=== PATIENT | male | born 1985 | race Caucasian/White ===

== ENCOUNTER 2020-05-16 13:04 | Emergency (ER) | payer SELFPAY ==
[~2020-05-16] VITALS: Ht 188 cm; Wt 89.1 kg
[2020-05-16] MEDS ORDERED: methylPREDNISolone SOD SUCC 125 MG/2 ML IVPush ONE (13:35)
[2020-05-16] MEDS ORDERED: methylPREDNISolone SOD SUCC 125 MG/2 ML ONE (13:52)
[2020-05-16 13:59] LABS: BASOPHILS % (AUTO) 0 % (0-1); EOSINOPHILS % (AUTO) 0 % (1-7); LYMPHOCYTES % (AUTO) 4 % (22-44); MEAN CORPUSCULAR HEMOGLOBIN 30.5 pg (27.5-34.5); MEAN CORPUSCULAR HGB CONC 34.7 g/dL (33.2-36.2); MEAN PLATELET VOLUME 8.5 fL (7.4-10.4); MONOCYTES % (AUTO) 2 % (2-9); NEUTROPHILS % (AUTO) 94 % (42-75); PLATELET COUNT 296 x10^3/uL (130-400); RED BLOOD COUNT 5.03 x10^6/uL (4.38-5.82); RED CELL DISTRIBUTION WIDTH 12.6 % (9.4-14.8)
[2020-05-16] MEDS ORDERED: SODIUM CHLORIDE FLUSH 10ML SYR IVF ONE (14:00)
[2020-05-16] MEDS ORDERED: SODIUM CHLORIDE 0.9% 1,000ML IVBOLUS ONE (14:00)
[2020-05-16] MEDS ORDERED: ALBU18HF INH (14:03)
[2020-05-16 14:09] LABS: ALBUMIN 3.8 g/dL (3.4-5.0); ANION GAP 10 mmol/L (5-15); CALCIUM 9.5 mg/dL (8.5-10.1); CHLORIDE 105 mmol/L (98-107); CREATININE 0.95 mg/dL (0.7-1.3)
--- NOTE | 2020-05-16 14:18 | NUR ---
HEART RATE DOWN TO 118BPM AFTER FIRST LITER OF NS. DR. ALONZO NOTIFIED AND ORDERED A SECOND LITER.
--- NOTE | 2020-05-16 14:21 | NUR ---
PT TO CT.
[2020-05-16] MEDS ORDERED: SODIUM CHLORIDE 0.9% 1,000 ML IV ONE (14:23)
[2020-05-16 14:26] LABS: MD NO
[2020-05-16] MEDS ORDERED: OMNIPAQUE 350 MG/ML, 100ML BOTTLE ONE (14:34)
--- NOTE | 2020-05-16 14:46 | NUR ---
REPORT FROM ROSELIA [place]. [facility] SPEECH MUFFLED. AIRWAY PATENT AND MANAGING SECRETIONS. FAMILY AT BEDSIDE. BP/SPO2/ECG MONITORING IN PLACE. +TACHYCARDIA. FAMILY/PT UPDATED TO POC AND DEMONSTRATE UNDERSTANDING.
--- NOTE | 2020-05-16 15:07 | NUR ---
REPOR TO ROSELIA MAE
--- NOTE | 2020-05-16 15:17 | NUR ---
pt in bed with no signs or symptoms of acute distress noted respirations even and unlabored, dnies pain or discomfort. pt states that he wants to go. dr dominguez, states he will speak with pt shortly. pt on coding team lead , with bed rails up bilaterally, call light within reach and family member at bedside.
[2020-05-16 15:18] VITALS: BP 120/69
--- NOTE | 2020-05-16 15:38 | NUR ---
in room to assess, before md could print dc papers pt self dc'd iv and walked out of unit. this rn found pt in parking lot and confirmed removal of iv, pt states "ill come back as soon as i handle this emergency at my house". this rn informed him that we dont need him to come back we just needed to confirm the removal of the iv. pt with all belongings, walked with steady gait and good balance, respirations even and unlabored no signs or symptoms of acute distress noted.
== END 2020-05-16 15:42 | disposition left against medical advice (07) ==
LOC: MERGE 15:00 → ED 15:00
DX: T78.3XXA Angioneurotic edema, initial encounter (principal); F15.10 Other stimulant abuse, uncomplicated
CPT/HCPCS: 36415; 70491; 80048; 82040; 85025; 93005; 96361; 96374; 99285; J2930; J7030; Q9967

== ENCOUNTER 2020-05-17 23:53 | Inpatient (IN) | payer MEDICAID ==
[~2020-05-17] VITALS: Ht 188 cm; Wt 84.2 kg
[~2020-05-17 23:53] MED LIST: ALBU18HF INH
--- NOTE | 2020-05-18 00:23 | NUR ---
PT REFUSING LAB UNTIL MOM BROUGHT BACK FROM LOBBY, MOM NOW AT BEDSIDE.
--- NOTE | 2020-05-18 00:46 | NUR ---
PT REFUSING BLOOD DRAW X2
[2020-05-18] MEDS ORDERED: HALOPERIDOL 5 MG/ML ONE (00:59)
[2020-05-18] MEDS ORDERED: HALOPERIDOL 5 MG/ML IM ONE (01:00)
--- NOTE | 2020-05-18 01:11 | NUR ---
PT REQ TO BE SEDATED AND HAVE MOUTH WASHED AND SUCTIONED, SUCTIONING NOT INDICATED AT THIS TIME. MOM REMAINS AT BEDSIDE PT MANAGING SECRETIONS NO DIFFICULTY, MOUTH SWABS PROVIDED.
[2020-05-18 01:30] LABS: BASOPHILS % (AUTO) 1 % (0-1); EOSINOPHILS % (AUTO) 1 % (1-7); LYMPHOCYTES % (AUTO) 16 % (22-44); MEAN CORPUSCULAR HEMOGLOBIN 30.2 pg (27.5-34.5); MEAN CORPUSCULAR HGB CONC 34.2 g/dL (33.2-36.2); MEAN PLATELET VOLUME 8.6 fL (7.4-10.4); MONOCYTES % (AUTO) 9 % (2-9); NEUTROPHILS % (AUTO) 74 % (42-75); PLATELET COUNT 234 x10^3/uL (130-400); RED BLOOD COUNT 4.93 x10^6/uL (4.38-5.82); RED CELL DISTRIBUTION WIDTH 12.7 % (9.4-14.8)
[2020-05-18 01:36] LABS: ALANINE AMINOTRANSFERASE 31 U/L (12-78); ALBUMIN 3.6 g/dL (3.4-5.0); ANION GAP 6 mmol/L (5-15); CALCIUM 8.7 mg/dL (8.5-10.1); CHLORIDE 107 mmol/L (98-107)
[2020-05-18 01:37] LABS: MD NO
[2020-05-18 01:38] LABS: ALKALINE PHOSPHATASE 97 U/L (45-117); BILIRUBIN,TOTAL 1.1 mg/dL (0.2-1.0); TOTAL PROTEIN 7.6 g/dL (6.4-8.2)
[2020-05-18 01:39] LABS: SALICYLATE LEVEL < 1.7 mg/dL (2.8-20.0)
--- NOTE | 2020-05-18 01:45 | NUR ---
PT AND MOTHER TALKING IN ROOM PT REQ WARM BLANKET AND DENIES ALL DRUG USE AT THIS TIME. STS HE FEEL LIKE HIS TONGUE IS SWOLLEN, PT MANAGING ALL SECTRETIONS AT THIS TIME.
[2020-05-18] MEDS ORDERED: PROPOFOL 10 MG/ML, 100ML IV ONE (02:00)
[2020-05-18] MEDS ORDERED: ETOMIDATE 20 MG/10 ML ONE (02:00)
[2020-05-18] MEDS ORDERED: SUCCINYLCHOLINE 20 MG/ML, 10ML ONE (02:00)
--- NOTE | 2020-05-18 02:30 | NUR ---
PT MOTHER REQ RN AT THIS TIME STS PT NEEDS IV, THAT HE NEEDS FLUIDS AND HE IS DEHYDRATED PT MOTHER ANGRY WITH RN ABOUT LACK OF IV AT THIS TIME. PT DROWSY BUT ANSWERING QUESTIONS AT THIS TIME. STS MOUTH IS DRY MORE SWABS PROVIDED AT THIS TIME.
--- NOTE | 2020-05-18 03:36 | NUR ---
PT RESTING ON [place] AT THIS TIME MOM AT BEDSIDE AGAIN REQ IV AND NOW WANTS TO SPEAK WITH . MD TO BEDSIDE PT ANSWERING QUESTIONS WITH MD AT THIS TIME, STS HE USES HEROIN AND METH. MOM CONTINUES TO DENY DRUG USE, VERY ANGRY WITH MD SHOUTING AND CURSING AT MD.
--- NOTE | 2020-05-18 03:45 | NUR ---
UNK MALE VISITOR AT BEDSIDE WITH MOM AT THIS TIME SHOUTING AT RN ABOUT PT NEEDING AN IV AND FLUIDS.
--- NOTE | 2020-05-18 03:50 | NUR ---
UNK MALE NO LONGER AT BEDSIDE PT GF NOW AT BEDSIDE.
[2020-05-18] MEDS ORDERED: NALOXONE 0.4 MG/ML, 1ML ONE (03:55)
--- NOTE | 2020-05-18 03:55 | NUR ---
NEW WHEAL NOTED TO L PALM, COOL TO TOUCH. PT BECOMING MORE ALTERED AT THIS TIME PER GF.
[2020-05-18] MEDS ORDERED: NALOXONE 1 MG/ML, 2ML ONE (03:58)
--- NOTE | 2020-05-18 04:00 | NUR ---
LATE ENTRY: MONITOR CHECK CALLED PT O2 SAT IN 60'S, PT BAGGED O2 SAT UP TO 99% DR ABERNATHY AT BEDSIDE. PT GIVEN 1MG OF NARCAN IM DUE TO INABILITY TO OBTAIN ACCESS. PIV ACCESS OBTAINED PT GIVEN ADDITIONAL 0.4 OF NARCAN IV, PT BREATHING INDEPENDENTLY BUT IS NOT ALERT AT THIS TIME. PER DR ABERNATHY PT TO BE MOVED TO T2 AND INTUBATED AT THIS TIME.
--- NOTE | 2020-05-18 04:46 | NUR ---
7.5 25 AT THE LIP 18 100% PEEP 5, 500 Addendum: 05/18/20 at 0521 by [email or web address] BREATH SOUNDS HEARD THROUGHOUT, EQUAL CHEST RISE AND FALL NOTED.
--- NOTE | 2020-05-18 04:46 | NUR ---
OBREGON INSERTED URINE SENT TO LAB
--- NOTE | 2020-05-18 05:01 | NUR ---
18FR OG TUBE PLACED
--- NOTE | 2020-05-18 05:11 | NUR ---
PT PLACED ON BEAR HUGGER, WARMING MEASURES IN PLACE.
--- NOTE | 2020-05-18 05:12 | NUR ---
LAB AT BEDSIDE FOR DRAW
--- NOTE | 2020-05-18 05:26 | NUR ---
LAB REMAINS AT BEDSIDE FOR DRAW
[2020-05-18 05:37] LABS: MICROSCOPIC NOT IND
[2020-05-18] MEDS ORDERED: MIDAZOLAM 1 MG/ML, 2ML ONE (05:51)
[2020-05-18 05:54] LABS: AMPHETAMINE SCREEN, URINE Positive (Negative); BARBITURATE SCREEN, URINE Negative (Negative); BENZODIAZEPINE SCREEN, URINE Negative (Negative); CANNABINOID SCREEN, URINE Negative (Negative); COCAINE SCREEN, URINE Negative (Negative); METHADONE SCREEN, URINE Negative (Negative); OPIATE SCREEN, URINE Positive (Negative)
--- NOTE | 2020-05-18 05:56 | NUR ---
PT TEARING, ERP UPDATED ORDER FOR VERSED PUSH, PT MEDICATED PER MAR AT THIS TIME.
[2020-05-18] MEDS ORDERED: MIDAZOLAM 1 MG/ML, 5ML IVPush ONE (06:00)
[2020-05-18] MEDS ORDERED: NALOXONE 0.4 MG/ML, 1ML IVPush ONE (06:00)
[2020-05-18] MEDS ORDERED: NALOXONE 1 MG/ML, 2ML IM ONE (06:00)
--- NOTE | 2020-05-18 06:05 | NUR ---
PT NO LONGER TEARING AT THIS TIME AFTER MEDICATION.
[2020-05-18] MEDS ORDERED: ETOMIDATE 20 MG/10 ML IVPush ONE (06:30)
[2020-05-18] MEDS ORDERED: PROPOFOL 100 ML IV PRN (06:30)
[2020-05-18] MEDS ORDERED: SODIUM CHLORIDE 0.9% 1,000 ML IV ONE (06:30)
[2020-05-18] MEDS ORDERED: SUCCINYLCHOLINE 20 MG/ML, 10ML IVPush ONE (06:30)
--- NOTE | 2020-05-18 06:31 | NUR ---
RESPIRTATORY AT BEDSIDE
--- NOTE | 2020-05-18 06:32 | NUR ---
REPORT TO DARCIE RN PT READY FOR TRANSPORT TO CT AND ROOM 548
[2020-05-18 06:35] LABS: TROPONIN I < 0.015 ng/mL (0.000-0.045)
[2020-05-18] MEDS ORDERED: ONDANSETRON 2MG/ML, 2ML IVPush PRN (08:00)
[2020-05-18] MEDS: ENOXAPARIN 40 MG/0.4 ML SQ SCH (08:51)
[2020-05-18] MEDS: LACTATED RINGERS 1,000 ML IV SCH ×2 (08:51→16:50)
[2020-05-18] MEDS: SENNA/DOCUSATE TABLET PO SCH (08:51)
[2020-05-18] MEDS: DEXAMETHASONE 4 MG/ML, 1ML IVPush SCH ×3 (08:51→20:20)
[2020-05-18] MEDS: FAMOTIDINE 20 MG/2 ML IVPush SCH ×2 (08:51→20:20)
[2020-05-18] MEDS ORDERED: PROPOFOL 100 ML IV ONE (13:01)
[2020-05-18] MEDS: PROPOFOL 100 ML IV PRN ×4 (13:05→23:55)
[2020-05-18 21:27] VITALS: BP 122/88
[2020-05-18] MEDS: POLYETHYLENE GLYCOL 17 GM PACKET PO PRN (22:23)
[2020-05-18] MEDS: BISACODYL 10 MG SUPP PR PRN (22:45)
[2020-05-19] MEDS: LACTATED RINGERS 1,000 ML IV SCH (01:09)
[2020-05-19] MEDS: DEXAMETHASONE 4 MG/ML, 1ML IVPush SCH (01:58)
[2020-05-19] MEDS: PROPOFOL 100 ML IV PRN ×2 (03:15→05:44)
[2020-05-19 04:00] VITALS: BP 122/89
[2020-05-19 04:37] LABS: BASOPHILS % (AUTO) 0 % (0-1); EOSINOPHILS % (AUTO) 0 % (1-7); LYMPHOCYTES % (AUTO) 4 % (22-44); MEAN CORPUSCULAR HEMOGLOBIN 30.5 pg (27.5-34.5); MEAN CORPUSCULAR HGB CONC 34.2 g/dL (33.2-36.2); MEAN PLATELET VOLUME 8.8 fL (7.4-10.4); MONOCYTES % (AUTO) 4 % (2-9); NEUTROPHILS % (AUTO) 92 % (42-75); PLATELET COUNT 271 x10^3/uL (130-400); RED BLOOD COUNT 5.13 x10^6/uL (4.38-5.82); RED CELL DISTRIBUTION WIDTH 12.8 % (9.4-14.8)
[2020-05-19 04:41] LABS: MD NO
[2020-05-19 04:49] LABS: ALANINE AMINOTRANSFERASE 29 U/L (12-78); ALBUMIN 3.5 g/dL (3.4-5.0); ANION GAP 10 mmol/L (5-15); CALCIUM 8.8 mg/dL (8.5-10.1); CHLORIDE 107 mmol/L (98-107)
[2020-05-19 04:51] LABS: ALKALINE PHOSPHATASE 104 U/L (45-117); BILIRUBIN,TOTAL 1.5 mg/dL (0.2-1.0); CREATININE 0.64 mg/dL (0.7-1.3); TOTAL PROTEIN 7.9 g/dL (6.4-8.2)
[2020-05-19] MEDS: FAMOTIDINE 20 MG/2 ML IVPush SCH (07:49)
[2020-05-19] MEDS: SENNA/DOCUSATE TABLET PO SCH (07:49)
[2020-05-19] MEDS: OXYcodone IR 5MG TABLET PO PRN ×2 (07:50→13:48)
[2020-05-19] MEDS: ENOXAPARIN 40 MG/0.4 ML SQ SCH ×2 (07:51→17:00)
[2020-05-19] MEDS: DEXMEDETOMIDINE 400 MCG in SODIUM CHLORIDE 0.9% 96 ML IV PRN ×3 (08:22→18:49)
[2020-05-19] MEDS: AMPICILLIN/SULBACTAM 3 GM in SODIUM CHLORIDE 0.9% 100 ML IV SCH ×3 (08:22→20:15)
[2020-05-19] MEDS ORDERED: OMNIPAQUE 350 MG/ML, 75ML BOTTLE ONE (11:01)
[2020-05-19] MEDS: SODIUM CHLORIDE INHALATION 7%, 4 ML NPPB SCH (13:06)
[2020-05-19] MEDS: ENALAPRILAT 1.25 MG/ML, 2ML IVPush PRN (13:48)
[2020-05-19] MEDS: PANTOPRAZOLE 40 MG IV IVPush SCH (17:05)
[2020-05-19] MEDS: LORazepam 2 MG/ML, 1ML IVPush PRN (21:03)
[2020-05-19] MEDS ORDERED: LACTATED RINGERS 1,000 ML IV SCH (22:00)
[2020-05-19] MEDS ORDERED: LACTATED RINGERS 1,000 ML IVBOLUS ONE (22:00)
[2020-05-20] MEDS: DEXMEDETOMIDINE 400 MCG in SODIUM CHLORIDE 0.9% 96 ML IV PRN ×4 (00:55→20:55)
[2020-05-20] MEDS: SODIUM CHLORIDE INHALATION 7%, 4 ML NPPB SCH ×2 (01:00→14:39)
[2020-05-20] MEDS: LORazepam 2 MG/ML, 1ML IVPush PRN ×2 (01:20→15:59)
[2020-05-20] MEDS: AMPICILLIN/SULBACTAM 3 GM in SODIUM CHLORIDE 0.9% 100 ML IV SCH ×4 (02:02→19:55)
[2020-05-20 04:00] VITALS: BP 122/76
[2020-05-20 04:23] LABS: BASOPHILS % (AUTO) 0 % (0-1); EOSINOPHILS % (AUTO) 0 % (1-7); LYMPHOCYTES % (AUTO) 3 % (22-44); MEAN CORPUSCULAR HEMOGLOBIN 30.6 pg (27.5-34.5); MEAN CORPUSCULAR HGB CONC 34.2 g/dL (33.2-36.2); MEAN PLATELET VOLUME 8.9 fL (7.4-10.4); MONOCYTES % (AUTO) 7 % (2-9); NEUTROPHILS % (AUTO) 90 % (42-75); PLATELET COUNT 255 x10^3/uL (130-400); RED BLOOD COUNT 5.23 x10^6/uL (4.38-5.82)
[2020-05-20 04:29] LABS: ANION GAP 4 mmol/L (5-15); CALCIUM 8.7 mg/dL (8.5-10.1); CHLORIDE 109 mmol/L (98-107); CREATININE 0.66 mg/dL (0.7-1.3)
[2020-05-20] MEDS: PANTOPRAZOLE 40 MG IV IVPush SCH ×2 (04:47→17:48)
[2020-05-20 05:43] LABS: MD SCAN
[2020-05-20] MEDS: ENALAPRILAT 1.25 MG/ML, 2ML IVPush PRN (08:15)
[2020-05-20] MEDS: SENNA/DOCUSATE TABLET PO SCH (08:33)
[2020-05-20] MEDS: ACETAMINOPHEN 325 MG TABLET PO PRN (08:40)
[2020-05-20] MEDS ORDERED: GADOTERATE 10 MMOL/20ML SYR ONE (18:30)
[2020-05-21] MEDS: DEXMEDETOMIDINE 1,000 MCG in SODIUM CHLORIDE 0.9% 240 ML IV PRN ×2 (00:47→16:29)
[2020-05-21] MEDS: SODIUM CHLORIDE INHALATION 7%, 4 ML NPPB SCH ×2 (01:00→07:00)
[2020-05-21] MEDS ORDERED: DEXMEDETOMIDINE 1,000 MCG in SODIUM CHLORIDE 0.9% 240 ML IV PRN (01:00)
[2020-05-21] MEDS: AMPICILLIN/SULBACTAM 3 GM in SODIUM CHLORIDE 0.9% 100 ML IV SCH (01:52)
[2020-05-21] MEDS: LORazepam 2 MG/ML, 1ML IVPush PRN ×2 (02:55→06:04)
[2020-05-21 04:01] VITALS: BP 118/72
[2020-05-21 04:23] LABS: MEAN CORPUSCULAR HEMOGLOBIN 30.3 pg (27.5-34.5); MEAN CORPUSCULAR HGB CONC 33.7 g/dL (33.2-36.2); PLATELET COUNT 220 x10^3/uL (130-400); RED BLOOD COUNT 4.95 x10^6/uL (4.38-5.82); RED CELL DISTRIBUTION WIDTH 12.9 % (9.4-14.8)
[2020-05-21 04:32] LABS: ANION GAP 4 mmol/L (5-15); CALCIUM 8.8 mg/dL (8.5-10.1); CHLORIDE 109 mmol/L (98-107)
[2020-05-21] MEDS: PANTOPRAZOLE 40 MG IV IVPush SCH ×2 (04:32→16:29)
[2020-05-21 04:38] LABS: ALANINE AMINOTRANSFERASE 22 U/L (12-78); ALBUMIN 2.9 g/dL (3.4-5.0); ALKALINE PHOSPHATASE 96 U/L (45-117); BILIRUBIN,TOTAL 1.2 mg/dL (0.2-1.0); TOTAL PROTEIN 7.2 g/dL (6.4-8.2)
[2020-05-21 05:21] LABS: MD YES
[2020-05-21 05:24] LABS: BANDS%(MANUAL) 3 % (0-7); LYMPH#(MANUAL) 1.06 x10^3/uL (1-3.4); LYMPHS% (MANUAL) 4 % (22-44); MONOS#(MANUAL) 2.66 x10^3/uL (0.3-2.7); MONOS% (MANUAL) 10 % (2-9); SEG#(MANUAL) 22.08 x10^3/uL (1.8-6.8); SEGS% (MANUAL) 83 % (42-75)
[2020-05-21 05:25] LABS: <PLATELET ESTIMATE> ADEQUATE; <PLT MORPHOLOGY> NORMAL PLT MORPH; <RBC MORPHOLOGY> NORMAL; PMNS WITH VACUOLES 1+; TOXIC GRAN 1+
[2020-05-21] MEDS ORDERED: ACYCLOVIR 800 MG in SODIUM CHLORIDE 0.9% 250 ML IV SCH (06:30)
[2020-05-21] MEDS ORDERED: VANCOMYCIN PER PHARMACY MC PRN (06:30)
[2020-05-21] MEDS ORDERED: VANCOMYCIN 2,200 MG in SODIUM CHLORIDE 0.9% 500 ML IV ONE (07:00)
[2020-05-21] MEDS ORDERED: PHARMACOKINETIC MONITORING MC PRN (07:00)
[2020-05-21] MEDS ORDERED: PHARMACOKINETIC CONSULTATION MC ONE (07:00)
[2020-05-21] MEDS: PIPERACILLIN/TAZO/PMX 3.375GM 50 ML IV SCH ×3 (07:40→20:01)
[2020-05-21] MEDS: SENNA/DOCUSATE TABLET PO SCH (08:31)
[2020-05-21] MEDS ORDERED: OMNIPAQUE 350 MG/ML, 150 ML BOTTLE ONE (10:45)
[2020-05-21 11:41] LABS: GLUCOSE, CSF 78 mg/dL (40-80); TOTAL PROTEIN,CSF 37 mg/dL (15-45)
[2020-05-21] MEDS ORDERED: VANCOMYCIN 1,800 MG in SODIUM CHLORIDE 0.9% 250 ML IV SCH (20:30)
[2020-05-21] MEDS: BISACODYL 10 MG SUPP PR PRN (21:38)
[2020-05-21] MEDS ORDERED: [UNRECOGNIZED DRUG - OTHER] IV ONE (22:00)
[2020-05-21] MEDS ORDERED: SODIUM CHLORIDE IV ONE (22:00)
[2020-05-22] MEDS: SODIUM CHLORIDE INHALATION 7%, 4 ML NPPB SCH ×2 (01:00→13:00)
[2020-05-22] MEDS: PIPERACILLIN/TAZO/PMX 3.375GM 50 ML IV SCH ×4 (02:13→21:42)
[2020-05-22 04:00] VITALS: BP 132/94
[2020-05-22 04:47] LABS: HCT (SEDRATE) 40.3 % (39.2-51.8)
[2020-05-22] MEDS: PANTOPRAZOLE 40 MG IV IVPush SCH ×2 (04:55→17:38)
[2020-05-22] MEDS: LORazepam 2 MG/ML, 1ML IVPush PRN (05:24)
[2020-05-22 05:34] LABS: BASOPHILS % (AUTO) 0 % (0-1); EOSINOPHILS % (AUTO) 0 % (1-7); LYMPHOCYTES % (AUTO) 5 % (22-44); MEAN CORPUSCULAR HEMOGLOBIN 30.1 pg (27.5-34.5); MEAN CORPUSCULAR HGB CONC 33.7 g/dL (33.2-36.2); MEAN PLATELET VOLUME 9.6 fL (7.4-10.4); MONOCYTES % (AUTO) 9 % (2-9); NEUTROPHILS % (AUTO) 87 % (42-75); PLATELET COUNT 216 x10^3/uL (130-400); RED BLOOD COUNT 4.53 x10^6/uL (4.38-5.82); RED CELL DISTRIBUTION WIDTH 12.7 % (9.4-14.8)
[2020-05-22 05:37] LABS: ALBUMIN 2.7 g/dL (3.4-5.0); ANION GAP 5 mmol/L (5-15); CALCIUM 8.4 mg/dL (8.5-10.1); CHLORIDE 109 mmol/L (98-107)
[2020-05-22 05:40] LABS: ALANINE AMINOTRANSFERASE 19 U/L (12-78); ALKALINE PHOSPHATASE 92 U/L (45-117); BILIRUBIN,TOTAL 1.1 mg/dL (0.2-1.0); CREATININE 0.58 mg/dL (0.7-1.3); TOTAL PROTEIN 6.7 g/dL (6.4-8.2)
[2020-05-22 05:58] LABS: MD SCAN
[2020-05-22] MEDS: DEXMEDETOMIDINE 1,000 MCG in SODIUM CHLORIDE 0.9% 240 ML IV PRN ×2 (06:46→19:18)
[2020-05-22] MEDS: POTASSIUM CHLORIDE 10% 40 MEQ/30 ML UDC PO SCH ×2 (09:33→21:07)
[2020-05-22] MEDS: SENNA/DOCUSATE TABLET PO SCH (09:33)
[2020-05-22] MEDS ORDERED: VANCOMYCIN 1,800 MG in SODIUM CHLORIDE 0.9% 250 ML IV SCH (12:30)
[2020-05-22] MEDS: OXYcodone IR 5MG TABLET PO PRN (12:48)
[2020-05-22] MEDS ORDERED: FENTANYL PF 100 MCG/2ML ONE (13:49)
[2020-05-22] MEDS ORDERED: PHENYLEPHRINE 10 MG/ML ONE (14:17)
[2020-05-22] MEDS ORDERED: EPINEPHRINE 1 MG/ML, 1ML ONE (15:01)
[2020-05-22] MEDS ORDERED: BUPIVACAINE/PF 0.5% ONE (15:01)
[2020-05-23] MEDS: SODIUM CHLORIDE INHALATION 7%, 4 ML NPPB SCH (01:00)
[2020-05-23] MEDS: morphine SULFATE 10 MG/ML, 1ML IVPush PRN (01:27)
[2020-05-23] MEDS: OXYcodone IR 5MG TABLET PO PRN (03:57)
[2020-05-23] MEDS: PIPERACILLIN/TAZO/PMX 3.375GM 50 ML IV SCH ×4 (03:57→21:44)
[2020-05-23 04:05] VITALS: BP 127/83
[2020-05-23 04:24] LABS: BASOPHILS % (AUTO) 0 % (0-1); EOSINOPHILS % (AUTO) 1 % (1-7); LYMPHOCYTES % (AUTO) 9 % (22-44); MEAN CORPUSCULAR HEMOGLOBIN 30.1 pg (27.5-34.5); MEAN CORPUSCULAR HGB CONC 33.8 g/dL (33.2-36.2); MEAN PLATELET VOLUME 9.3 fL (7.4-10.4); MONOCYTES % (AUTO) 11 % (2-9); NEUTROPHILS % (AUTO) 79 % (42-75); PLATELET COUNT 185 x10^3/uL (130-400); RED BLOOD COUNT 4.43 x10^6/uL (4.38-5.82); RED CELL DISTRIBUTION WIDTH 12.7 % (9.4-14.8)
[2020-05-23 04:39] LABS: ANION GAP 4 mmol/L (5-15); CALCIUM 8.1 mg/dL (8.5-10.1); CHLORIDE 113 mmol/L (98-107); CREATININE 0.55 mg/dL (0.7-1.3)
[2020-05-23 04:59] LABS: MD SCAN
[2020-05-23] MEDS: PANTOPRAZOLE 40 MG IV IVPush SCH ×2 (05:11→17:30)
[2020-05-23] MEDS: DEXMEDETOMIDINE 1,000 MCG in SODIUM CHLORIDE 0.9% 240 ML IV PRN (06:31)
[2020-05-23] MEDS: SENNA/DOCUSATE TABLET PO SCH (08:44)
[2020-05-23] MEDS ORDERED: PROPOFOL 100 ML IV ONE (10:50)
[2020-05-23] MEDS ORDERED: PROPOFOL 100 ML IV PRN (11:00)
[2020-05-23] MEDS ORDERED: FENTANYL PF 1,000 MCG in SODIUM CHLORIDE 0.9% 80 ML IV PRN (16:30)
[2020-05-23] MEDS: PROPOFOL 100 ML IV PRN ×2 (17:30→21:44)
[2020-05-23] MEDS: FENTANYL PF 2,500 MCG in SODIUM CHLORIDE 0.9% 200 ML IV PRN (21:55)
[2020-05-24] MEDS: PROPOFOL 100 ML IV PRN ×2 (00:15→04:15)
[2020-05-24] MEDS: PANTOPRAZOLE 40 MG IV IVPush SCH ×2 (04:15→16:42)
[2020-05-24] MEDS: PIPERACILLIN/TAZO/PMX 3.375GM 50 ML IV SCH ×4 (04:18→21:38)
[2020-05-24 07:16] LABS: BASOPHILS % (AUTO) 1 % (0-1); EOSINOPHILS % (AUTO) 2 % (1-7); LYMPHOCYTES % (AUTO) 14 % (22-44); MEAN CORPUSCULAR HEMOGLOBIN 30.6 pg (27.5-34.5); MEAN CORPUSCULAR HGB CONC 33.7 g/dL (33.2-36.2); MEAN PLATELET VOLUME 9.7 fL (7.4-10.4); MONOCYTES % (AUTO) 8 % (2-9); NEUTROPHILS % (AUTO) 76 % (42-75); PLATELET COUNT 143 x10^3/uL (130-400); RED BLOOD COUNT 4.43 x10^6/uL (4.38-5.82); RED CELL DISTRIBUTION WIDTH 12.4 % (9.4-14.8)
[2020-05-24 07:17] LABS: MD NO
[2020-05-24 07:53] LABS: ALANINE AMINOTRANSFERASE 30 U/L (12-78); ALBUMIN 2.4 g/dL (3.4-5.0); ANION GAP 5 mmol/L (5-15); CALCIUM 7.9 mg/dL (8.5-10.1); CHLORIDE 110 mmol/L (98-107); CREATININE 0.56 mg/dL (0.7-1.3)
[2020-05-24 07:55] LABS: ALKALINE PHOSPHATASE 76 U/L (45-117); BILIRUBIN,TOTAL 1.1 mg/dL (0.2-1.0); TOTAL PROTEIN 6.1 g/dL (6.4-8.2)
[2020-05-24] MEDS: SENNA/DOCUSATE TABLET PO SCH (10:21)
[2020-05-24] MEDS: POTASSIUM CHLORIDE 20 MEQ PACKET PO SCH ×2 (10:22→20:44)
[2020-05-24] MEDS: FENTANYL PF 2,500 MCG in SODIUM CHLORIDE 0.9% 200 ML IV PRN ×2 (12:35→23:42)
[2020-05-24] MEDS: LORazepam 2 MG/ML, 1ML IVPush PRN (21:36)
[2020-05-25] MEDS: LORazepam 2 MG/ML, 1ML IVPush PRN ×2 (02:58→04:47)
[2020-05-25] MEDS: PIPERACILLIN/TAZO/PMX 3.375GM 50 ML IV SCH ×4 (04:01→21:47)
[2020-05-25] MEDS: PANTOPRAZOLE 40 MG IV IVPush SCH ×2 (05:04→17:38)
[2020-05-25 05:06] LABS: BASOPHILS % (AUTO) 0 % (0-1); EOSINOPHILS % (AUTO) 1 % (1-7); LYMPHOCYTES % (AUTO) 10 % (22-44); MEAN CORPUSCULAR HEMOGLOBIN 30.5 pg (27.5-34.5); MEAN CORPUSCULAR HGB CONC 34.2 g/dL (33.2-36.2); MEAN PLATELET VOLUME 9.1 fL (7.4-10.4); MONOCYTES % (AUTO) 9 % (2-9); NEUTROPHILS % (AUTO) 79 % (42-75); PLATELET COUNT 220 x10^3/uL (130-400); RED BLOOD COUNT 4.96 x10^6/uL (4.38-5.82); RED CELL DISTRIBUTION WIDTH 12.8 % (9.4-14.8)
[2020-05-25 05:11] LABS: ANION GAP 5 mmol/L (5-15); CALCIUM 8.6 mg/dL (8.5-10.1); CHLORIDE 106 mmol/L (98-107)
[2020-05-25 05:46] LABS: MD SCAN
[2020-05-25] MEDS ORDERED: METHYLNALTREXONE 12 MG/0.6 ML SYR SQ SCH (09:00)
[2020-05-25] MEDS: SENNA/DOCUSATE TABLET PO SCH (09:18)
[2020-05-25] MEDS ORDERED: MIDAZOLAM 1 MG/ML, 5ML ONE (16:10)
[2020-05-25] MEDS ORDERED: VECURONIUM 10 MG ONE (16:10)
[2020-05-25] MEDS ORDERED: FENTANYL PF 100 MCG/2ML ONE ×3 (16:11)
[2020-05-25] MEDS: morphine SULFATE 10 MG/ML, 1ML IVPush PRN (23:20)
[2020-05-26] MEDS: LORazepam 2 MG/ML, 1ML IVPush PRN ×4 (00:01→23:10)
[2020-05-26] MEDS: FENTANYL PF 2,500 MCG in SODIUM CHLORIDE 0.9% 200 ML IV PRN ×2 (00:24→11:29)
[2020-05-26] MEDS: PIPERACILLIN/TAZO/PMX 3.375GM 50 ML IV SCH ×4 (03:43→21:58)
[2020-05-26 04:29] LABS: BASOPHILS % (AUTO) 1 % (0-1); EOSINOPHILS % (AUTO) 1 % (1-7); LYMPHOCYTES % (AUTO) 10 % (22-44); MEAN CORPUSCULAR HEMOGLOBIN 30.7 pg (27.5-34.5); MEAN CORPUSCULAR HGB CONC 34.4 g/dL (33.2-36.2); MEAN PLATELET VOLUME 9.1 fL (7.4-10.4); MONOCYTES % (AUTO) 7 % (2-9); NEUTROPHILS % (AUTO) 81 % (42-75); PLATELET COUNT 246 x10^3/uL (130-400); RED BLOOD COUNT 5.29 x10^6/uL (4.38-5.82); RED CELL DISTRIBUTION WIDTH 12.6 % (9.4-14.8)
[2020-05-26 04:37] LABS: ANION GAP 7 mmol/L (5-15); CALCIUM 9.1 mg/dL (8.5-10.1); CHLORIDE 103 mmol/L (98-107); CREATININE 0.57 mg/dL (0.7-1.3)
[2020-05-26] MEDS: PANTOPRAZOLE 40 MG IV IVPush SCH ×2 (05:00→16:03)
[2020-05-26 05:45] LABS: MD SCAN
[2020-05-26] MEDS: SENNA/DOCUSATE TABLET PO SCH (07:46)
[2020-05-26] MEDS ORDERED: MIDAZOLAM 1 MG/ML, 5ML ONE ×2 (09:28→13:21)
[2020-05-26] MEDS: METHYLNALTREXONE 12 MG/0.6 ML SYR SQ SCH (09:33)
[2020-05-26] MEDS ORDERED: MIDAZOLAM 1 MG/ML, 5ML IVPush ONE (13:30)
[2020-05-26] MEDS: morphine SULFATE 10 MG/ML, 1ML IVPush PRN (20:54)
[2020-05-27] MEDS: FENTANYL PF 2,500 MCG in SODIUM CHLORIDE 0.9% 200 ML IV PRN ×2 (00:09→13:57)
[2020-05-27] MEDS: LORazepam 2 MG/ML, 1ML IVPush PRN ×5 (02:45→21:36)
[2020-05-27] MEDS: PANTOPRAZOLE 40 MG IV IVPush SCH ×2 (04:30→16:00)
[2020-05-27] MEDS: PIPERACILLIN/TAZO/PMX 3.375GM 50 ML IV SCH ×4 (04:31→21:37)
[2020-05-27] MEDS: METHYLNALTREXONE 12 MG/0.6 ML SYR SQ SCH (08:41)
[2020-05-27] MEDS: SENNA/DOCUSATE TABLET PO SCH (08:41)
[2020-05-27] MEDS: BISACODYL 10 MG SUPP PR PRN (09:12)
[2020-05-27] MEDS: METHADONE INTENSOL 10 MG/ML ORAL CONC PO SCH ×2 (11:17→20:25)
[2020-05-27] MEDS: POLYETHYLENE GLYCOL 17 GM PACKET PO PRN (16:00)
[2020-05-27] MEDS: OXYcodone IR 5MG TABLET PO PRN ×2 (16:01→23:33)
[2020-05-27] MEDS: ENOXAPARIN 40 MG/0.4 ML SQ SCH (20:25)
[2020-05-27] MEDS: ACETAMINOPHEN 325 MG TABLET PO PRN (23:32)
[2020-05-28] MEDS: LORazepam 2 MG/ML, 1ML IVPush PRN ×4 (01:03→21:24)
[2020-05-28] MEDS: PANTOPRAZOLE 40 MG IV IVPush SCH ×2 (05:36→16:10)
[2020-05-28] MEDS: PIPERACILLIN/TAZO/PMX 3.375GM 50 ML IV SCH ×4 (05:36→21:32)
[2020-05-28] MEDS: OXYcodone IR 5MG TABLET PO PRN ×3 (05:41→15:45)
[2020-05-28] MEDS: SENNA/DOCUSATE TABLET PO SCH ×2 (07:21→21:23)
[2020-05-28] MEDS: METHADONE INTENSOL 10 MG/ML ORAL CONC PO SCH ×2 (07:21→21:23)
[2020-05-28] MEDS: POLYETHYLENE GLYCOL 17 GM PACKET PO SCH (10:34)
[2020-05-28] MEDS: ENOXAPARIN 40 MG/0.4 ML SQ SCH (21:24)
[2020-05-29] MEDS: LORazepam 2 MG/ML, 1ML IVPush PRN (02:35)
[2020-05-29] MEDS: PIPERACILLIN/TAZO/PMX 3.375GM 50 ML IV SCH (04:13)
[2020-05-29] MEDS: OXYcodone IR 5MG TABLET PO PRN ×2 (04:13→08:43)
[2020-05-29] MEDS: PANTOPRAZOLE 40 MG IV IVPush SCH ×2 (04:13→16:43)
[2020-05-29 04:36] LABS: BASOPHILS % (AUTO) 1 % (0-1); EOSINOPHILS % (AUTO) 1 % (1-7); LYMPHOCYTES % (AUTO) 7 % (22-44); MEAN CORPUSCULAR HEMOGLOBIN 30.5 pg (27.5-34.5); MEAN PLATELET VOLUME 9.5 fL (7.4-10.4); MONOCYTES % (AUTO) 11 % (2-9); NEUTROPHILS % (AUTO) 81 % (42-75); PLATELET COUNT 254 x10^3/uL (130-400); RED BLOOD COUNT 4.68 x10^6/uL (4.38-5.82); RED CELL DISTRIBUTION WIDTH 12.8 % (9.4-14.8)
[2020-05-29 04:45] LABS: ALANINE AMINOTRANSFERASE 148 U/L (12-78); ALBUMIN 2.7 g/dL (3.4-5.0); ANION GAP 3 mmol/L (5-15); CALCIUM 8.7 mg/dL (8.5-10.1); CHLORIDE 103 mmol/L (98-107)
[2020-05-29 04:48] LABS: ALKALINE PHOSPHATASE 141 U/L (45-117); BILIRUBIN,TOTAL 0.6 mg/dL (0.2-1.0); CREATININE 0.46 mg/dL (0.7-1.3); TOTAL PROTEIN 7.6 g/dL (6.4-8.2)
[2020-05-29 05:48] LABS: MD SCAN
[2020-05-29] MEDS: CEFAZOLIN PMX 2GM/50ML 50 ML IVPB SCH ×3 (08:41→23:51)
[2020-05-29] MEDS: METHADONE INTENSOL 10 MG/ML ORAL CONC PO SCH ×2 (08:44→21:19)
[2020-05-29] MEDS: POLYETHYLENE GLYCOL 17 GM PACKET PO SCH (08:44)
[2020-05-29] MEDS: SENNA/DOCUSATE TABLET PO SCH ×2 (08:44→21:19)
[2020-05-29] MEDS ORDERED: METHYLNALTREXONE 12 MG/0.6 ML SYR SQ SCH (09:00)
[2020-05-29 10:19] LABS: HCT (SEDRATE) 42.7 % (39.2-51.8)
--- NOTE | 2020-05-29 11:36 | NUR ---
TF per RD recs (05/29): Vital AF 1.2 w/ end goal rate of 75mL/hr (OFF propofol). Addendum: 05/29/20 at [address] Amended: Links added.
[2020-05-29] MEDS: NYSTATIN 500,000 UNITS/5 ML UDC PO SCH ×3 (12:28→21:19)
[2020-05-29] MEDS: ENOXAPARIN 40 MG/0.4 ML SQ SCH (21:20)
[2020-05-30] MEDS: LORazepam 2 MG/ML, 1ML IVPush PRN ×3 (02:29→20:20)
[2020-05-30] MEDS: OXYcodone IR 5MG TABLET PO PRN ×2 (02:31→11:13)
[2020-05-30 04:55] LABS: BASOPHILS % (AUTO) 0 % (0-1); EOSINOPHILS % (AUTO) 1 % (1-7); LYMPHOCYTES % (AUTO) 8 % (22-44); MEAN CORPUSCULAR HEMOGLOBIN 30.4 pg (27.5-34.5); MEAN CORPUSCULAR HGB CONC 33.4 g/dL (33.2-36.2); MEAN PLATELET VOLUME 9.8 fL (7.4-10.4); MONOCYTES % (AUTO) 8 % (2-9); NEUTROPHILS % (AUTO) 83 % (42-75); PLATELET COUNT 256 x10^3/uL (130-400); RED BLOOD COUNT 4.74 x10^6/uL (4.38-5.82); RED CELL DISTRIBUTION WIDTH 12.9 % (9.4-14.8)
[2020-05-30 04:58] LABS: MD NO
[2020-05-30 05:03] LABS: CHLORIDE 104 mmol/L (98-107)
[2020-05-30 05:08] LABS: ANION GAP 5 mmol/L (5-15); CALCIUM 9.4 mg/dL (8.5-10.1); CREATININE 0.42 mg/dL (0.7-1.3)
[2020-05-30] MEDS: PANTOPRAZOLE 40 MG IV IVPush SCH ×2 (05:58→16:11)
[2020-05-30] MEDS: NYSTATIN 500,000 UNITS/5 ML UDC PO SCH ×4 (05:58→20:19)
[2020-05-30] MEDS: CEFAZOLIN PMX 2GM/50ML 50 ML IVPB SCH ×2 (08:06→16:11)
[2020-05-30] MEDS: POLYETHYLENE GLYCOL 17 GM PACKET PO SCH (09:18)
[2020-05-30] MEDS: METHADONE INTENSOL 10 MG/ML ORAL CONC PO SCH ×2 (09:18→20:19)
[2020-05-30] MEDS: SENNA/DOCUSATE TABLET PO SCH ×2 (09:19→20:19)
[2020-05-30] MEDS: ACETAMINOPHEN 325 MG TABLET PO PRN (11:13)
[2020-05-30] MEDS: ENOXAPARIN 40 MG/0.4 ML SQ SCH (20:30)
[2020-05-31] MEDS: CEFAZOLIN PMX 2GM/50ML 50 ML IVPB SCH ×2 (00:29→09:12)
[2020-05-31] MEDS: LORazepam 2 MG/ML, 1ML IVPush PRN ×3 (00:42→20:56)
[2020-05-31] MEDS: PANTOPRAZOLE 40 MG IV IVPush SCH ×2 (05:31→16:30)
[2020-05-31] MEDS: NYSTATIN 500,000 UNITS/5 ML UDC PO SCH ×4 (05:31→20:54)
[2020-05-31] MEDS: SENNA/DOCUSATE TABLET PO SCH ×2 (09:13→20:54)
[2020-05-31] MEDS: BISACODYL 10 MG SUPP PR SCH (09:13)
[2020-05-31] MEDS: METHADONE INTENSOL 10 MG/ML ORAL CONC PO SCH ×2 (09:13→20:54)
[2020-05-31] MEDS: POLYETHYLENE GLYCOL 17 GM PACKET PO SCH (09:13)
[2020-05-31] MEDS: ENOXAPARIN 40 MG/0.4 ML SQ SCH (20:54)
[2020-05-31] MEDS: OXYcodone IR 5MG TABLET PO PRN (23:15)
[2020-06-01] MEDS: OXYcodone IR 5MG TABLET PO PRN ×2 (03:51→18:11)
[2020-06-01 04:38] LABS: BASOPHILS % (AUTO) 1 % (0-1); EOSINOPHILS % (AUTO) 1 % (1-7); LYMPHOCYTES % (AUTO) 13 % (22-44); MEAN CORPUSCULAR HEMOGLOBIN 30.7 pg (27.5-34.5); MEAN CORPUSCULAR HGB CONC 33.8 g/dL (33.2-36.2); MEAN PLATELET VOLUME 9.2 fL (7.4-10.4); MONOCYTES % (AUTO) 8 % (2-9); NEUTROPHILS % (AUTO) 77 % (42-75); PLATELET COUNT 332 x10^3/uL (130-400); RED BLOOD COUNT 4.92 x10^6/uL (4.38-5.82); RED CELL DISTRIBUTION WIDTH 13.1 % (9.4-14.8)
[2020-06-01 04:40] LABS: MD NO
[2020-06-01 04:49] LABS: ALBUMIN 2.8 g/dL (3.4-5.0); ANION GAP 3 mmol/L (5-15); CALCIUM 9.6 mg/dL (8.5-10.1); CHLORIDE 105 mmol/L (98-107)
[2020-06-01 04:54] LABS: ALANINE AMINOTRANSFERASE 131 U/L (12-78); ALKALINE PHOSPHATASE 139 U/L (45-117); BILIRUBIN,TOTAL 0.4 mg/dL (0.2-1.0); CREATININE 0.51 mg/dL (0.7-1.3); TOTAL PROTEIN 8.3 g/dL (6.4-8.2)
[2020-06-01] MEDS: PANTOPRAZOLE 40 MG IV IVPush SCH ×2 (05:52→16:00)
[2020-06-01] MEDS: NYSTATIN 500,000 UNITS/5 ML UDC PO SCH ×4 (05:52→20:28)
[2020-06-01] MEDS ORDERED: PHARMACY MAY ADJ FOR RENAL FX MC SCH (07:30)
[2020-06-01] MEDS ORDERED: ROCURONIUM 10 MG/ML,10ML IVPush ONE (07:30)
[2020-06-01] MEDS ORDERED: PROPOFOL 10 MG/ML, 20ML IV ONE (07:30)
[2020-06-01] MEDS ORDERED: PROPOFOL 100 ML IV PRN (07:30)
[2020-06-01] MEDS: METHADONE INTENSOL 10 MG/ML ORAL CONC PO SCH ×2 (08:37→20:29)
[2020-06-01] MEDS: BISACODYL 10 MG SUPP PR SCH (09:39)
[2020-06-01] MEDS: POLYETHYLENE GLYCOL 17 GM PACKET PO SCH (09:39)
[2020-06-01] MEDS: SENNA/DOCUSATE TABLET PO SCH ×2 (09:39→20:28)
[2020-06-01] MEDS: METOCLOPRAMIDE 5 MG/ML, 2ML IVPush SCH ×2 (16:00→20:28)
[2020-06-01] MEDS: ENOXAPARIN 40 MG/0.4 ML SQ SCH (20:29)
[2020-06-01] MEDS: LORazepam 2 MG/ML, 1ML IVPush PRN (22:40)
[2020-06-02] MEDS: METOCLOPRAMIDE 5 MG/ML, 2ML IVPush SCH ×4 (03:30→20:43)
[2020-06-02] MEDS: PANTOPRAZOLE 40 MG IV IVPush SCH ×2 (04:03→16:57)
[2020-06-02] MEDS: LORazepam 2 MG/ML, 1ML IVPush PRN (04:03)
[2020-06-02 04:36] LABS: BASOPHILS % (AUTO) 1 % (0-1); EOSINOPHILS % (AUTO) 2 % (1-7); LYMPHOCYTES % (AUTO) 11 % (22-44); MEAN CORPUSCULAR HEMOGLOBIN 30.9 pg (27.5-34.5); MEAN CORPUSCULAR HGB CONC 33.9 g/dL (33.2-36.2); MEAN PLATELET VOLUME 8.9 fL (7.4-10.4); MONOCYTES % (AUTO) 8 % (2-9); NEUTROPHILS % (AUTO) 78 % (42-75); PLATELET COUNT 336 x10^3/uL (130-400); RED BLOOD COUNT 4.82 x10^6/uL (4.38-5.82); RED CELL DISTRIBUTION WIDTH 13.4 % (9.4-14.8)
[2020-06-02 04:37] LABS: MD NO
[2020-06-02 04:46] LABS: ANION GAP 3 mmol/L (5-15); CALCIUM 9.4 mg/dL (8.5-10.1); CHLORIDE 105 mmol/L (98-107); CREATININE 0.53 mg/dL (0.7-1.3)
[2020-06-02] MEDS: NYSTATIN 500,000 UNITS/5 ML UDC PO SCH ×5 (06:00→20:42)
[2020-06-02] MEDS: SENNA/DOCUSATE TABLET PO SCH ×2 (09:44→20:42)
[2020-06-02] MEDS: POLYETHYLENE GLYCOL 17 GM PACKET PO SCH (09:44)
[2020-06-02] MEDS: METHADONE INTENSOL 10 MG/ML ORAL CONC PO SCH ×2 (09:45→20:42)
[2020-06-02] MEDS: BISACODYL 10 MG SUPP PR SCH (09:45)
[2020-06-02] MEDS ORDERED: NEOSTIGMINE 1 MG/ML, 10ML IV ONE (10:30)
[2020-06-02] MEDS ORDERED: ATROPINE SYRINGE 0.1 MG/ML, 10ML IVPush ONE (10:30)
[2020-06-02] MEDS: OXYcodone IR 5MG TABLET PO PRN (16:58)
[2020-06-02] MEDS: ENOXAPARIN 40 MG/0.4 ML SQ SCH (20:43)
[2020-06-03] MEDS: LORazepam 2 MG/ML, 1ML IVPush PRN ×4 (01:43→21:14)
[2020-06-03 04:21] LABS: BASOPHILS % (AUTO) 1 % (0-1); EOSINOPHILS % (AUTO) 1 % (1-7); LYMPHOCYTES % (AUTO) 10 % (22-44); MEAN CORPUSCULAR HEMOGLOBIN 30.4 pg (27.5-34.5); MEAN CORPUSCULAR HGB CONC 33.2 g/dL (33.2-36.2); MONOCYTES % (AUTO) 7 % (2-9); NEUTROPHILS % (AUTO) 82 % (42-75); PLATELET COUNT 296 x10^3/uL (130-400); RED CELL DISTRIBUTION WIDTH 13.2 % (9.4-14.8)
[2020-06-03 04:33] LABS: ANION GAP 2 mmol/L (5-15); CHLORIDE 99 mmol/L (98-107)
[2020-06-03 04:34] LABS: CREATININE 0.47 mg/dL (0.7-1.3)
[2020-06-03 04:36] LABS: MD NO
[2020-06-03] MEDS: METOCLOPRAMIDE 5 MG/ML, 2ML IVPush SCH ×4 (05:06→21:15)
[2020-06-03] MEDS: NYSTATIN 500,000 UNITS/5 ML UDC PO SCH ×2 (05:06→11:00)
[2020-06-03] MEDS: PANTOPRAZOLE 40 MG IV IVPush SCH ×2 (05:07→17:11)
[2020-06-03] MEDS: BISACODYL 10 MG SUPP PR SCH (08:28)
[2020-06-03] MEDS: SENNA/DOCUSATE TABLET PO SCH ×2 (08:28→21:00)
[2020-06-03] MEDS: POLYETHYLENE GLYCOL 17 GM PACKET PO SCH (08:28)
[2020-06-03] MEDS: METHADONE INTENSOL 10 MG/ML ORAL CONC PO SCH ×2 (08:28→21:14)
[2020-06-03] MEDS ORDERED: NYSTATIN 500,000 UNITS/5 ML UDC PO PRN (11:30)
[2020-06-03] MEDS ORDERED: ATROPINE SYRINGE 0.1 MG/ML, 10ML IVPush ONE (14:30)
[2020-06-03] MEDS ORDERED: NEOSTIGMINE 1 MG/ML, 10ML IV ONE ×3 (14:30→15:30)
[2020-06-03] MEDS: ENOXAPARIN 40 MG/0.4 ML SQ SCH (21:00)
[2020-06-04] MEDS: METOCLOPRAMIDE 5 MG/ML, 2ML IVPush SCH ×4 (03:20→20:49)
[2020-06-04] MEDS: LORazepam 2 MG/ML, 1ML IVPush PRN ×3 (03:21→18:19)
[2020-06-04 04:31] LABS: BASOPHILS % (AUTO) 1 % (0-1); EOSINOPHILS % (AUTO) 1 % (1-7); LYMPHOCYTES % (AUTO) 10 % (22-44); MEAN CORPUSCULAR HEMOGLOBIN 30.6 pg (27.5-34.5); MEAN CORPUSCULAR HGB CONC 33.7 g/dL (33.2-36.2); MEAN PLATELET VOLUME 8.8 fL (7.4-10.4); MONOCYTES % (AUTO) 7 % (2-9); NEUTROPHILS % (AUTO) 81 % (42-75); PLATELET COUNT 286 x10^3/uL (130-400); RED BLOOD COUNT 4.18 x10^6/uL (4.38-5.82); RED CELL DISTRIBUTION WIDTH 13.2 % (9.4-14.8)
[2020-06-04 04:32] LABS: MD NO
[2020-06-04 04:37] LABS: ANION GAP 2 mmol/L (5-15); CALCIUM 8.8 mg/dL (8.5-10.1); CHLORIDE 102 mmol/L (98-107); CREATININE 0.48 mg/dL (0.7-1.3); TRIGLYCERIDES 70 mg/dL (50-200)
[2020-06-04] MEDS: PANTOPRAZOLE 40 MG IV IVPush SCH ×2 (05:09→16:17)
[2020-06-04] MEDS: METHADONE INTENSOL 10 MG/ML ORAL CONC PO SCH ×2 (09:31→20:50)
[2020-06-04] MEDS: POLYETHYLENE GLYCOL 17 GM PACKET PO SCH (09:40)
[2020-06-04] MEDS: SENNA/DOCUSATE TABLET PO SCH ×2 (09:40→20:49)
[2020-06-04] MEDS: BISACODYL 10 MG SUPP PR SCH (09:40)
[2020-06-04] MEDS ORDERED: OMNIPAQUE 350 MG/ML, 75ML BOTTLE ONE (13:26)
[2020-06-04] MEDS ORDERED: MIDAZOLAM 1 MG/ML, 2ML IVPush ONE (15:00)
[2020-06-04] MEDS ORDERED: PROPOFOL 100 ML IV PRN (15:00)
[2020-06-04] MEDS: MEROPENEM 1 GM in SODIUM CHLORIDE 0.9% 100 ML IV SCH ×2 (15:27→23:21)
[2020-06-04] MEDS ORDERED: IBUPROFEN 200 MG TABLET ONE (18:12)
[2020-06-04] MEDS: IBUPROFEN 200 MG TABLET PEG PRN (18:19)
[2020-06-04] MEDS: ENOXAPARIN 40 MG/0.4 ML SQ SCH (20:49)
[2020-06-04] MEDS: GUAIFENESIN 200 MG TABLET PO SCH (20:50)
[2020-06-05] MEDS: LORazepam 2 MG/ML, 1ML IVPush PRN ×3 (02:19→16:39)
[2020-06-05] MEDS: METOCLOPRAMIDE 5 MG/ML, 2ML IVPush SCH ×4 (04:01→22:42)
[2020-06-05] MEDS: OXYcodone IR 5MG TABLET PO PRN ×2 (04:02→14:08)
[2020-06-05 04:24] LABS: BASOPHILS % (AUTO) 0 % (0-1); EOSINOPHILS % (AUTO) 1 % (1-7); LYMPHOCYTES % (AUTO) 5 % (22-44); MEAN CORPUSCULAR HEMOGLOBIN 30.8 pg (27.5-34.5); MEAN CORPUSCULAR HGB CONC 33.5 g/dL (33.2-36.2); MONOCYTES % (AUTO) 6 % (2-9); NEUTROPHILS % (AUTO) 88 % (42-75); PLATELET COUNT 310 x10^3/uL (130-400); RED BLOOD COUNT 4.05 x10^6/uL (4.38-5.82); RED CELL DISTRIBUTION WIDTH 13.2 % (9.4-14.8)
[2020-06-05 04:34] LABS: ANION GAP 2 mmol/L (5-15); CALCIUM 9.1 mg/dL (8.5-10.1); CHLORIDE 103 mmol/L (98-107); CREATININE 0.49 mg/dL (0.7-1.3)
[2020-06-05] MEDS: PANTOPRAZOLE 40 MG IV IVPush SCH ×2 (05:30→16:39)
[2020-06-05 05:45] LABS: MD SCAN
[2020-06-05] MEDS: MEROPENEM 1 GM in SODIUM CHLORIDE 0.9% 100 ML IV SCH ×3 (06:37→22:43)
[2020-06-05] MEDS: LINEZOLID PMX 600MG/300ML 300 ML IV SCH ×2 (07:28→19:40)
[2020-06-05] MEDS: SENNA/DOCUSATE TABLET PO SCH ×2 (09:39→20:09)
[2020-06-05] MEDS: POLYETHYLENE GLYCOL 17 GM PACKET PO SCH (09:39)
[2020-06-05] MEDS: METHADONE INTENSOL 10 MG/ML ORAL CONC PO SCH ×2 (09:39→20:09)
[2020-06-05] MEDS: GUAIFENESIN 200 MG TABLET PO SCH ×2 (09:39→20:09)
[2020-06-05] MEDS: BISACODYL 10 MG SUPP PR SCH (11:27)
[2020-06-05] MEDS: IBUPROFEN 200 MG TABLET PEG PRN (14:06)
[2020-06-05] MEDS: METHYLNALTREXONE 12 MG/0.6 ML SYR SQ SCH (14:09)
[2020-06-05] MEDS ORDERED: ACETYLCYSTEINE 20%, 4ML NPPB SCH ×2 (15:00→16:30)
[2020-06-05] MEDS: ACETYLCYSTEINE 20%, 4ML NPPB SCH (19:04)
[2020-06-05] MEDS: ENOXAPARIN 40 MG/0.4 ML SQ SCH (20:10)
[2020-06-05] MEDS ORDERED: SODIUM CHLORIDE INHALATION 3%, 4 ML NPPB SCH ×2 (21:00)
[2020-06-06] MEDS: LORazepam 2 MG/ML, 1ML IVPush PRN ×3 (01:20→14:59)
[2020-06-06] MEDS: ACETYLCYSTEINE 20%, 4ML NPPB SCH ×4 (02:16→21:00)
[2020-06-06] MEDS: OXYcodone IR 5MG TABLET PO PRN (03:13)
[2020-06-06] MEDS: METOCLOPRAMIDE 5 MG/ML, 2ML IVPush SCH ×4 (04:22→21:44)
[2020-06-06 04:25] LABS: BASOPHILS % (AUTO) 0 % (0-1); EOSINOPHILS % (AUTO) 1 % (1-7); LYMPHOCYTES % (AUTO) 4 % (22-44); MEAN CORPUSCULAR HEMOGLOBIN 30.4 pg (27.5-34.5); MEAN CORPUSCULAR HGB CONC 33.1 g/dL (33.2-36.2); MEAN PLATELET VOLUME 8.9 fL (7.4-10.4); MONOCYTES % (AUTO) 9 % (2-9); NEUTROPHILS % (AUTO) 86 % (42-75); PLATELET COUNT 236 x10^3/uL (130-400); RED BLOOD COUNT 3.68 x10^6/uL (4.38-5.82); RED CELL DISTRIBUTION WIDTH 13.5 % (9.4-14.8)
[2020-06-06 04:33] LABS: ANION GAP 2 mmol/L (5-15); CALCIUM 8.5 mg/dL (8.5-10.1); CHLORIDE 101 mmol/L (98-107); CREATININE 0.39 mg/dL (0.7-1.3)
[2020-06-06] MEDS: PANTOPRAZOLE 40 MG IV IVPush SCH ×2 (05:12→16:31)
[2020-06-06 05:41] LABS: MD SCAN
[2020-06-06] MEDS: MEROPENEM 1 GM in SODIUM CHLORIDE 0.9% 100 ML IV SCH (06:02)
[2020-06-06] MEDS: LINEZOLID PMX 600MG/300ML 300 ML IV SCH (06:39)
[2020-06-06] MEDS ORDERED: ALBUTEROL SULFATE 2.5 MG/3 ML ONE (07:17)
[2020-06-06] MEDS: BISACODYL 10 MG SUPP PR SCH (08:05)
[2020-06-06] MEDS: POLYETHYLENE GLYCOL 17 GM PACKET PO SCH (08:48)
[2020-06-06] MEDS: GUAIFENESIN 200 MG TABLET PO SCH ×2 (08:52→21:43)
[2020-06-06] MEDS: SENNA/DOCUSATE TABLET PO SCH ×2 (08:52→21:43)
[2020-06-06] MEDS: METHADONE INTENSOL 10 MG/ML ORAL CONC PO SCH ×2 (08:53→21:44)
[2020-06-06] MEDS: ALBUTEROL SULFATE 2.5 MG/3 ML INLINE SCH ×3 (09:00→20:56)
[2020-06-06] MEDS: SODIUM CHLORIDE INHALATION 3%, 4 ML INLINE SCH ×3 (09:00→21:00)
[2020-06-06] MEDS ORDERED: LACTATED RINGERS 1,000 ML IVBOLUS ONE (09:00)
[2020-06-06] MEDS: CEFAZOLIN PMX 2GM/50ML 50 ML IVPB SCH ×2 (14:17→21:43)
[2020-06-06] MEDS: ENOXAPARIN 40 MG/0.4 ML SQ SCH (21:45)
[2020-06-07] MEDS: SODIUM CHLORIDE INHALATION 3%, 4 ML INLINE SCH ×4 (03:00→21:00)
[2020-06-07] MEDS: ALBUTEROL SULFATE 2.5 MG/3 ML INLINE SCH ×4 (03:00→21:00)
[2020-06-07] MEDS: METOCLOPRAMIDE 5 MG/ML, 2ML IVPush SCH ×4 (04:35→20:36)
[2020-06-07] MEDS: CEFAZOLIN PMX 2GM/50ML 50 ML IVPB SCH ×3 (05:00→21:07)
[2020-06-07] MEDS: PANTOPRAZOLE 40 MG IV IVPush SCH ×2 (05:00→16:50)
[2020-06-07 05:20] LABS: BASOPHILS % (AUTO) 0 % (0-1); EOSINOPHILS % (AUTO) 1 % (1-7); LYMPHOCYTES % (AUTO) 10 % (22-44); MEAN CORPUSCULAR HEMOGLOBIN 30.9 pg (27.5-34.5); MEAN CORPUSCULAR HGB CONC 33.9 g/dL (33.2-36.2); MEAN PLATELET VOLUME 9.4 fL (7.4-10.4); MONOCYTES % (AUTO) 9 % (2-9); NEUTROPHILS % (AUTO) 80 % (42-75); PLATELET COUNT 209 x10^3/uL (130-400); RED BLOOD COUNT 3.29 x10^6/uL (4.38-5.82); RED CELL DISTRIBUTION WIDTH 13.6 % (9.4-14.8)
[2020-06-07 05:35] LABS: CALCIUM 8.6 mg/dL (8.5-10.1); CHLORIDE 101 mmol/L (98-107)
[2020-06-07 05:39] LABS: ANION GAP 6 mmol/L (5-15); CREATININE 0.23 mg/dL (0.7-1.3); TRIGLYCERIDES 47 mg/dL (50-200)
[2020-06-07 05:47] LABS: MD NO
[2020-06-07] MEDS: ACETYLCYSTEINE 20%, 4ML NPPB SCH ×3 (06:42→21:00)
[2020-06-07] MEDS ORDERED: POTASSIUM CHLORIDE 20 MEQ PACKET PO ONE (07:00)
[2020-06-07] MEDS: POLYETHYLENE GLYCOL 17 GM PACKET PO SCH (08:04)
[2020-06-07] MEDS: METHADONE INTENSOL 10 MG/ML ORAL CONC PO SCH ×2 (08:05→20:36)
[2020-06-07] MEDS: SENNA/DOCUSATE TABLET PO SCH ×2 (08:05→20:37)
[2020-06-07] MEDS ORDERED: BISACODYL 10 MG SUPP PR PRN (09:00)
[2020-06-07] MEDS: GUAIFENESIN 200 MG TABLET PO SCH (10:58)
[2020-06-07] MEDS: METHYLNALTREXONE 12 MG/0.6 ML SYR SQ SCH (11:15)
[2020-06-07] MEDS: LORazepam 2 MG/ML, 1ML IVPush PRN (16:59)
[2020-06-07] MEDS ORDERED: GUAIFENESIN 100 MG/5 ML PO SCH (20:30)
[2020-06-07] MEDS: ENOXAPARIN 40 MG/0.4 ML SQ SCH (20:38)
[2020-06-07] MEDS: GUAIFENESIN 100 MG/5 ML, 10ML UDC PO SCH (21:07)
[2020-06-08] MEDS: GUAIFENESIN 100 MG/5 ML, 10ML UDC PO SCH ×2 (01:31→06:06)
[2020-06-08] MEDS: ALBUTEROL SULFATE 2.5 MG/3 ML INLINE SCH ×4 (02:44→19:10)
[2020-06-08] MEDS: SODIUM CHLORIDE INHALATION 3%, 4 ML INLINE SCH ×3 (03:00→14:17)
[2020-06-08] MEDS: METOCLOPRAMIDE 5 MG/ML, 2ML IVPush SCH ×4 (03:35→21:33)
[2020-06-08] MEDS: PANTOPRAZOLE 40 MG IV IVPush SCH ×2 (03:36→18:35)
[2020-06-08 04:37] LABS: BASOPHILS % (AUTO) 0 % (0-1); EOSINOPHILS % (AUTO) 1 % (1-7); LYMPHOCYTES % (AUTO) 11 % (22-44); MEAN CORPUSCULAR HEMOGLOBIN 31.6 pg (27.5-34.5); MEAN CORPUSCULAR HGB CONC 34.4 g/dL (33.2-36.2); MEAN PLATELET VOLUME 9.2 fL (7.4-10.4); MONOCYTES % (AUTO) 10 % (2-9); NEUTROPHILS % (AUTO) 77 % (42-75); PLATELET COUNT 216 x10^3/uL (130-400); RED BLOOD COUNT 3.02 x10^6/uL (4.38-5.82); RED CELL DISTRIBUTION WIDTH 13.8 % (9.4-14.8)
[2020-06-08 04:44] LABS: MD NO
[2020-06-08 04:45] LABS: ANION GAP 5 mmol/L (5-15); CALCIUM 8.6 mg/dL (8.5-10.1); CHLORIDE 104 mmol/L (98-107); CREATININE 0.36 mg/dL (0.7-1.3)
[2020-06-08] MEDS: CEFAZOLIN PMX 2GM/50ML 50 ML IVPB SCH ×3 (06:06→21:33)
[2020-06-08] MEDS: ACETYLCYSTEINE 20%, 4ML NPPB SCH ×3 (06:50→19:10)
[2020-06-08] MEDS: POLYETHYLENE GLYCOL 17 GM PACKET PO SCH (08:11)
[2020-06-08] MEDS: SENNA/DOCUSATE TABLET PO SCH ×2 (08:34→20:20)
[2020-06-08] MEDS: METHADONE INTENSOL 10 MG/ML ORAL CONC PO SCH ×2 (08:36→20:20)
[2020-06-08] MEDS: ENOXAPARIN 40 MG/0.4 ML SQ SCH (20:20)
[2020-06-09] MEDS: SODIUM CHLORIDE INHALATION 3%, 4 ML INLINE SCH ×2 (00:30→12:57)
[2020-06-09] MEDS: ALBUTEROL SULFATE 2.5 MG/3 ML INLINE SCH ×4 (00:30→19:24)
[2020-06-09] MEDS: METOCLOPRAMIDE 5 MG/ML, 2ML IVPush SCH ×4 (02:53→20:55)
[2020-06-09 04:25] LABS: BASOPHILS % (AUTO) 1 % (0-1); EOSINOPHILS % (AUTO) 2 % (1-7); LYMPHOCYTES % (AUTO) 13 % (22-44); MEAN CORPUSCULAR HEMOGLOBIN 30.9 pg (27.5-34.5); MEAN CORPUSCULAR HGB CONC 33.6 g/dL (33.2-36.2); MEAN PLATELET VOLUME 9.1 fL (7.4-10.4); MONOCYTES % (AUTO) 10 % (2-9); NEUTROPHILS % (AUTO) 75 % (42-75); PLATELET COUNT 173 x10^3/uL (130-400); RED BLOOD COUNT 3.22 x10^6/uL (4.38-5.82); RED CELL DISTRIBUTION WIDTH 13.9 % (9.4-14.8)
[2020-06-09] MEDS: PANTOPRAZOLE 40 MG IV IVPush SCH ×2 (04:28→18:05)
[2020-06-09 04:32] LABS: MD NO
[2020-06-09 04:33] LABS: ANION GAP 4 mmol/L (5-15); CALCIUM 8.6 mg/dL (8.5-10.1); CHLORIDE 106 mmol/L (98-107); CREATININE 0.35 mg/dL (0.7-1.3)
[2020-06-09 05:39] VITALS: BP 114/78
[2020-06-09] MEDS: CEFAZOLIN PMX 2GM/50ML 50 ML IVPB SCH ×3 (05:42→21:02)
[2020-06-09] MEDS: ACETYLCYSTEINE 20%, 4ML NPPB SCH ×2 (07:00→19:24)
[2020-06-09] MEDS: POLYETHYLENE GLYCOL 17 GM PACKET PO SCH (09:00)
[2020-06-09] MEDS: SENNA/DOCUSATE TABLET PO SCH ×2 (09:00→20:56)
[2020-06-09] MEDS: METHADONE INTENSOL 10 MG/ML ORAL CONC PO SCH ×2 (09:14→20:56)
[2020-06-09] MEDS: METHYLNALTREXONE 12 MG/0.6 ML SYR SQ SCH (15:09)
[2020-06-09 16:22] LABS: OCCULT BLOOD NEGATIVE (NEGATIVE)
[2020-06-09] MEDS: ENOXAPARIN 40 MG/0.4 ML SQ SCH (20:55)
[2020-06-10] MEDS: ALBUTEROL SULFATE 2.5 MG/3 ML INLINE SCH ×4 (02:36→19:16)
[2020-06-10] MEDS: SODIUM CHLORIDE INHALATION 3%, 4 ML INLINE SCH ×2 (02:36→12:41)
[2020-06-10] MEDS ORDERED: MELATONIN 5 MG TABLET ONE (02:55)
[2020-06-10] MEDS: MELATONIN 5 MG TABLET PO PRN ×2 (03:00→21:08)
[2020-06-10] MEDS: METOCLOPRAMIDE 5 MG/ML, 2ML IVPush SCH ×4 (03:01→21:08)
[2020-06-10] MEDS: LORazepam 2 MG/ML, 1ML IVPush PRN (03:39)
[2020-06-10 04:38] LABS: ANION GAP 5 mmol/L (5-15); CHLORIDE 106 mmol/L (98-107); CREATININE 0.41 mg/dL (0.7-1.3); TRIGLYCERIDES 55 mg/dL (50-200)
[2020-06-10 04:39] LABS: BASOPHILS % (AUTO) 1 % (0-1); EOSINOPHILS % (AUTO) 2 % (1-7); LYMPHOCYTES % (AUTO) 12 % (22-44); MEAN CORPUSCULAR HEMOGLOBIN 31.2 pg (27.5-34.5); MEAN CORPUSCULAR HGB CONC 33.9 g/dL (33.2-36.2); MEAN PLATELET VOLUME 8.7 fL (7.4-10.4); MONOCYTES % (AUTO) 10 % (2-9); NEUTROPHILS % (AUTO) 76 % (42-75); PLATELET COUNT 263 x10^3/uL (130-400); RED BLOOD COUNT 3.58 x10^6/uL (4.38-5.82); RED CELL DISTRIBUTION WIDTH 13.8 % (9.4-14.8)
[2020-06-10 04:45] LABS: MD NO
[2020-06-10] MEDS: CEFAZOLIN PMX 2GM/50ML 50 ML IVPB SCH ×3 (05:17→21:27)
[2020-06-10] MEDS: PANTOPRAZOLE 40 MG IV IVPush SCH ×2 (05:17→17:43)
[2020-06-10] MEDS: ACETYLCYSTEINE 20%, 4ML NPPB SCH ×2 (07:13→19:00)
[2020-06-10] MEDS: SENNA/DOCUSATE TABLET PO SCH ×2 (09:07→21:00)
[2020-06-10] MEDS: POLYETHYLENE GLYCOL 17 GM PACKET PO SCH (09:08)
[2020-06-10] MEDS: METHADONE INTENSOL 10 MG/ML ORAL CONC PO SCH ×2 (09:09→21:08)
[2020-06-10] MEDS: ACETAMINOPHEN 325 MG TABLET PO PRN (14:21)
[2020-06-10] MEDS: ENOXAPARIN 40 MG/0.4 ML SQ SCH (21:08)
[2020-06-11] MEDS: SODIUM CHLORIDE INHALATION 3%, 4 ML INLINE SCH (01:00)
[2020-06-11] MEDS: ALBUTEROL SULFATE 2.5 MG/3 ML INLINE SCH ×4 (01:22→19:47)
[2020-06-11] MEDS: LORazepam 2 MG/ML, 1ML IVPush PRN ×3 (02:18→20:46)
[2020-06-11] MEDS: PANTOPRAZOLE 40 MG IV IVPush SCH ×2 (03:59→09:25)
[2020-06-11] MEDS: METOCLOPRAMIDE 5 MG/ML, 2ML IVPush SCH (03:59)
[2020-06-11 04:25] LABS: BASOPHILS % (AUTO) 1 % (0-1); EOSINOPHILS % (AUTO) 2 % (1-7); LYMPHOCYTES % (AUTO) 17 % (22-44); MEAN CORPUSCULAR HEMOGLOBIN 31.1 pg (27.5-34.5); MEAN CORPUSCULAR HGB CONC 33.7 g/dL (33.2-36.2); MEAN PLATELET VOLUME 8.8 fL (7.4-10.4); MONOCYTES % (AUTO) 11 % (2-9); NEUTROPHILS % (AUTO) 69 % (42-75); PLATELET COUNT 265 x10^3/uL (130-400); RED BLOOD COUNT 3.61 x10^6/uL (4.38-5.82); RED CELL DISTRIBUTION WIDTH 13.7 % (9.4-14.8)
[2020-06-11 04:28] LABS: MD NO
[2020-06-11 04:37] LABS: ANION GAP 6 mmol/L (5-15); CALCIUM 8.8 mg/dL (8.5-10.1); CHLORIDE 104 mmol/L (98-107); CREATININE 0.41 mg/dL (0.7-1.3)
[2020-06-11] MEDS: CEFAZOLIN PMX 2GM/50ML 50 ML IVPB SCH ×3 (05:32→22:02)
[2020-06-11] MEDS: ACETYLCYSTEINE 20%, 4ML NPPB SCH ×2 (07:05→19:00)
[2020-06-11] MEDS: SENNA/DOCUSATE TABLET PO SCH ×2 (09:23→20:46)
[2020-06-11] MEDS: METHADONE INTENSOL 10 MG/ML ORAL CONC PO SCH ×2 (09:24→20:47)
[2020-06-11] MEDS: POLYETHYLENE GLYCOL 17 GM PACKET PO SCH (09:25)
[2020-06-11] MEDS: LACTULOSE 20 GM/30 ML UDC PO SCH ×2 (09:25→20:46)
[2020-06-11] MEDS: METHYLNALTREXONE 12 MG/0.6 ML SYR SQ SCH ×3 (15:00→20:49)
[2020-06-11] MEDS: ENOXAPARIN 40 MG/0.4 ML SQ SCH (20:47)
[2020-06-12] MEDS: SODIUM CHLORIDE INHALATION 3%, 4 ML INLINE SCH ×2 (01:00→13:00)
[2020-06-12] MEDS: ALBUTEROL SULFATE 2.5 MG/3 ML INLINE SCH ×4 (01:37→22:00)
[2020-06-12] MEDS: LORazepam 2 MG/ML, 1ML IVPush PRN ×3 (04:27→19:29)
[2020-06-12 04:52] LABS: MEAN CORPUSCULAR HEMOGLOBIN 30.9 pg (27.5-34.5); MEAN CORPUSCULAR HGB CONC 34.1 g/dL (33.2-36.2); MEAN PLATELET VOLUME 8.8 fL (7.4-10.4); PLATELET COUNT 336 x10^3/uL (130-400); RED BLOOD COUNT 4.41 x10^6/uL (4.38-5.82); RED CELL DISTRIBUTION WIDTH 13.3 % (9.4-14.8)
[2020-06-12 05:02] LABS: ANION GAP 6 mmol/L (5-15); CALCIUM 9.4 mg/dL (8.5-10.1); CHLORIDE 103 mmol/L (98-107); CREATININE 0.38 mg/dL (0.7-1.3)
[2020-06-12 05:48] LABS: MD YES
[2020-06-12 05:51] LABS: LYMPH#(MANUAL) 1.86 x10^3/uL (1-3.4); LYMPHS% (MANUAL) 16 % (22-44); MONOS#(MANUAL) 0.81 x10^3/uL (0.3-2.7); MONOS% (MANUAL) 7 % (2-9); MYELOCYTES# (MANUAL) 0.12 x10^3/uL (0-0); MYELOCYTES% (MANUAL) 1 % (0-0); SEGS% (MANUAL) 75 % (42-75)
[2020-06-12 05:52] LABS: OTHER CELLS # (MANUAL) 0.12 x10^3/uL (0-0); OTHER CELLS % (MANUAL) 1 % (0-0)
[2020-06-12 05:55] LABS: <PLATELET ESTIMATE> ADEQUATE; LARGE PLATELETS 1+; POLYCHROMASIA 1+
[2020-06-12] MEDS: CEFAZOLIN PMX 2GM/50ML 50 ML IVPB SCH ×3 (05:58→22:11)
[2020-06-12] MEDS: ACETYLCYSTEINE 20%, 4ML NPPB SCH ×2 (06:57→18:42)
[2020-06-12] MEDS: LACTULOSE 20 GM/30 ML UDC PO SCH ×2 (09:00→21:14)
[2020-06-12] MEDS: POLYETHYLENE GLYCOL 17 GM PACKET PO SCH (09:00)
[2020-06-12] MEDS: SENNA/DOCUSATE TABLET PO SCH ×2 (09:06→21:17)
[2020-06-12] MEDS: PANTOPRAZOLE 40 MG IV IVPush SCH (09:06)
[2020-06-12] MEDS: METHADONE INTENSOL 10 MG/ML ORAL CONC PO SCH ×2 (09:06→21:17)
[2020-06-12] MEDS: IBUPROFEN 200 MG TABLET PEG PRN ×2 (11:03→21:18)
--- NOTE | 2020-06-12 11:43 | NUR ---
Vital AF tube feeding: goal: 80 ml/hr Addendum: 06/12/20 at [address] Amended: Links added.
[2020-06-12] MEDS ORDERED: NALOXONE 1 MG/ML, 2ML ONE (16:39)
[2020-06-12] MEDS ORDERED: NALOXONE 1 MG/ML, 2ML IVPush ONE (17:00)
[2020-06-12 17:41] LABS: ANION GAP 3 mmol/L (5-15); CALCIUM 9.6 mg/dL (8.5-10.1); CHLORIDE 97 mmol/L (98-107)
[2020-06-12 17:42] LABS: CREATININE 0.68 mg/dL (0.7-1.3)
[2020-06-12] MEDS: ENOXAPARIN 40 MG/0.4 ML SQ SCH (21:15)
[2020-06-13 00:39] LABS: AMPHETAMINE SCREEN, URINE Negative (Negative); BARBITURATE SCREEN, URINE Negative (Negative); BENZODIAZEPINE SCREEN, URINE Negative (Negative); CANNABINOID SCREEN, URINE Negative (Negative); COCAINE SCREEN, URINE Negative (Negative); METHADONE SCREEN, URINE Negative (Negative); OPIATE SCREEN, URINE Positive (Negative)
[2020-06-13] MEDS: ALBUTEROL SULFATE 2.5 MG/3 ML INLINE SCH ×6 (02:38→23:00)
[2020-06-13] MEDS: SODIUM CHLORIDE INHALATION 3%, 4 ML INLINE SCH (02:38)
[2020-06-13] MEDS: LORazepam 2 MG/ML, 1ML IVPush PRN ×2 (02:56→13:54)
[2020-06-13 04:30] LABS: BASOPHILS % (AUTO) 1 % (0-1); EOSINOPHILS % (AUTO) 2 % (1-7); LYMPHOCYTES % (AUTO) 16 % (22-44); MEAN CORPUSCULAR HEMOGLOBIN 30.5 pg (27.5-34.5); MEAN CORPUSCULAR HGB CONC 33.2 g/dL (33.2-36.2); MEAN PLATELET VOLUME 8.2 fL (7.4-10.4); MONOCYTES % (AUTO) 10 % (2-9); NEUTROPHILS % (AUTO) 72 % (42-75); PLATELET COUNT 331 x10^3/uL (130-400); RED BLOOD COUNT 4.03 x10^6/uL (4.38-5.82); RED CELL DISTRIBUTION WIDTH 13.6 % (9.4-14.8)
[2020-06-13 04:31] LABS: MD NO
[2020-06-13 04:40] LABS: ANION GAP 5 mmol/L (5-15); CALCIUM 8.8 mg/dL (8.5-10.1); CHLORIDE 102 mmol/L (98-107)
[2020-06-13 04:42] LABS: CREATININE 0.48 mg/dL (0.7-1.3)
[2020-06-13] MEDS: CEFAZOLIN PMX 2GM/50ML 50 ML IVPB SCH ×3 (05:40→21:05)
[2020-06-13] MEDS: ACETYLCYSTEINE 20%, 4ML NPPB SCH (07:00)
[2020-06-13 08:22] LABS: AMPHETAMINE SCREEN, URINE Negative (Negative); BARBITURATE SCREEN, URINE Negative (Negative); BENZODIAZEPINE SCREEN, URINE Negative (Negative); CANNABINOID SCREEN, URINE Negative (Negative); COCAINE SCREEN, URINE Negative (Negative); METHADONE SCREEN, URINE Positive (Negative); OPIATE SCREEN, URINE Positive (Negative)
[2020-06-13] MEDS: LACTULOSE 20 GM/30 ML UDC PO SCH ×2 (08:38→21:04)
[2020-06-13] MEDS: PANTOPRAZOLE 40 MG IV IVPush SCH (08:38)
[2020-06-13] MEDS: POLYETHYLENE GLYCOL 17 GM PACKET PO SCH (08:38)
[2020-06-13] MEDS: SENNA/DOCUSATE TABLET PO SCH ×2 (08:38→21:04)
[2020-06-13] MEDS: METHADONE INTENSOL 10 MG/ML ORAL CONC PO SCH ×2 (08:39→21:04)
[2020-06-13] MEDS: LACTOBACILLUS CHEW TABLET PO SCH ×3 (10:01→21:04)
[2020-06-13] MEDS: METHYLNALTREXONE 12 MG/0.6 ML SYR SQ SCH (15:42)
[2020-06-13] MEDS ORDERED: RIVAROXABAN 10 MG TABLET PO SCH (21:00)
[2020-06-14] MEDS: LORazepam 2 MG/ML, 1ML IVPush PRN ×2 (01:18→15:54)
[2020-06-14] MEDS: ALBUTEROL SULFATE 2.5 MG/3 ML INLINE SCH ×6 (03:00→22:30)
[2020-06-14 04:31] LABS: BASOPHILS % (AUTO) 1 % (0-1); EOSINOPHILS % (AUTO) 3 % (1-7); LYMPHOCYTES % (AUTO) 19 % (22-44); MD NO; MEAN CORPUSCULAR HEMOGLOBIN 31.2 pg (27.5-34.5); MEAN CORPUSCULAR HGB CONC 33.7 g/dL (33.2-36.2); MEAN PLATELET VOLUME 7.9 fL (7.4-10.4); MONOCYTES % (AUTO) 8 % (2-9); NEUTROPHILS % (AUTO) 70 % (42-75); PLATELET COUNT 295 x10^3/uL (130-400); RED BLOOD COUNT 3.97 x10^6/uL (4.38-5.82); RED CELL DISTRIBUTION WIDTH 13.6 % (9.4-14.8)
[2020-06-14 04:41] LABS: ANION GAP 3 mmol/L (5-15); CALCIUM 8.7 mg/dL (8.5-10.1); CHLORIDE 103 mmol/L (98-107); CREATININE 0.45 mg/dL (0.7-1.3)
[2020-06-14] MEDS: CEFAZOLIN PMX 2GM/50ML 50 ML IVPB SCH ×3 (05:10→21:40)
[2020-06-14] MEDS: METHADONE INTENSOL 10 MG/ML ORAL CONC PO SCH ×2 (08:25→21:40)
[2020-06-14] MEDS: LACTOBACILLUS CHEW TABLET PO SCH ×3 (08:25→21:39)
[2020-06-14] MEDS: PANTOPRAZOLE 40 MG IV IVPush SCH (08:25)
[2020-06-14] MEDS ORDERED: SENNA/DOCUSATE TABLET PO PRN (09:00)
[2020-06-14] MEDS: RIVAROXABAN 10 MG TABLET PO SCH (15:54)
[2020-06-14] MEDS: DOCUSATE 100 MG CAPSULE PO SCH (21:00)
[2020-06-15] MEDS: ALBUTEROL SULFATE 2.5 MG/3 ML INLINE SCH ×6 (03:00→22:35)
[2020-06-15] MEDS: LORazepam 2 MG/ML, 1ML IVPush PRN ×3 (04:16→19:35)
[2020-06-15 05:06] LABS: BASOPHILS % (AUTO) 1 % (0-1); EOSINOPHILS % (AUTO) 4 % (1-7); LYMPHOCYTES % (AUTO) 19 % (22-44); MEAN CORPUSCULAR HEMOGLOBIN 31.1 pg (27.5-34.5); MEAN CORPUSCULAR HGB CONC 33.8 g/dL (33.2-36.2); MEAN PLATELET VOLUME 8.1 fL (7.4-10.4); MONOCYTES % (AUTO) 8 % (2-9); NEUTROPHILS % (AUTO) 68 % (42-75); PLATELET COUNT 302 x10^3/uL (130-400); RED BLOOD COUNT 3.96 x10^6/uL (4.38-5.82)
[2020-06-15 05:07] LABS: MD NO
[2020-06-15 05:10] LABS: CHLORIDE 102 mmol/L (98-107)
[2020-06-15 05:15] LABS: ANION GAP 5 mmol/L (5-15); CREATININE 0.48 mg/dL (0.7-1.3)
[2020-06-15] MEDS: CEFAZOLIN PMX 2GM/50ML 50 ML IVPB SCH ×3 (06:07→21:41)
[2020-06-15] MEDS ORDERED: DOCUSATE 50 MG/5 ML, 10ML UDC ONE (08:40)
[2020-06-15] MEDS: DOCUSATE 100 MG CAPSULE PO SCH (08:43)
[2020-06-15] MEDS: PANTOPRAZOLE 40 MG IV IVPush SCH (08:43)
[2020-06-15] MEDS: LACTOBACILLUS CHEW TABLET PO SCH ×3 (08:44→20:46)
[2020-06-15] MEDS ORDERED: METHADONE INTENSOL 10 MG/ML ORAL CONC PO SCH (09:00)
[2020-06-15] MEDS: DOCUSATE 50 MG/5 ML, 10ML UDC PO SCH ×2 (09:30→20:46)
--- NOTE | 2020-06-15 12:15 | NUR ---
Tube feed change: Promote. goal:90 ml/hr Addendum: 06/15/20 at [address] Amended: Links added.
[2020-06-15] MEDS: POLYETHYLENE GLYCOL 17 GM PACKET PO PRN (15:32)
[2020-06-15] MEDS: RIVAROXABAN 10 MG TABLET PO SCH (16:59)
[2020-06-15] MEDS: METHADONE 10 MG TABLET PO SCH (20:46)
[2020-06-16] MEDS: ALBUTEROL SULFATE 2.5 MG/3 ML INLINE SCH ×6 (02:39→22:19)
[2020-06-16] MEDS: LORazepam 2 MG/ML, 1ML IVPush PRN ×3 (03:27→17:47)
[2020-06-16] MEDS: CEFAZOLIN PMX 2GM/50ML 50 ML IVPB SCH ×3 (05:48→21:46)
[2020-06-16] MEDS: LACTOBACILLUS CHEW TABLET PO SCH ×3 (09:06→20:22)
[2020-06-16] MEDS: PANTOPRAZOLE 40 MG IV IVPush SCH (09:06)
[2020-06-16] MEDS: METHADONE 10 MG TABLET PO SCH ×2 (09:06→20:22)
[2020-06-16] MEDS: DOCUSATE 50 MG/5 ML, 10ML UDC PO SCH ×2 (09:06→20:22)
[2020-06-16] MEDS: RIVAROXABAN 10 MG TABLET PO SCH (17:09)
[2020-06-17] MEDS: LORazepam 2 MG/ML, 1ML IVPush PRN ×3 (01:44→20:59)
[2020-06-17] MEDS: ALBUTEROL SULFATE 2.5 MG/3 ML INLINE SCH ×6 (02:33→23:55)
[2020-06-17] MEDS: CEFAZOLIN PMX 2GM/50ML 50 ML IVPB SCH ×3 (05:36→20:59)
[2020-06-17] MEDS: DOCUSATE 50 MG/5 ML, 10ML UDC PO SCH ×2 (09:00→20:59)
[2020-06-17] MEDS: PANTOPRAZOLE 40 MG IV IVPush SCH (09:00)
[2020-06-17] MEDS: METHADONE 10 MG TABLET PO SCH ×2 (09:01→20:59)
[2020-06-17] MEDS: LACTOBACILLUS CHEW TABLET PO SCH ×3 (09:01→20:59)
[2020-06-17] MEDS: RIVAROXABAN 10 MG TABLET PO SCH (17:10)
[2020-06-18] MEDS: ALBUTEROL SULFATE 2.5 MG/3 ML INLINE SCH ×2 (02:45→08:00)
[2020-06-18] MEDS: LORazepam 2 MG/ML, 1ML IVPush PRN ×3 (04:11→17:55)
[2020-06-18] MEDS: CEFAZOLIN PMX 2GM/50ML 50 ML IVPB SCH ×4 (05:50→21:12)
[2020-06-18] MEDS: PANTOPRAZOLE 40 MG IV IVPush SCH (08:59)
[2020-06-18] MEDS: METHADONE 10 MG TABLET PO SCH ×2 (08:59→20:59)
[2020-06-18] MEDS: DOCUSATE 50 MG/5 ML, 10ML UDC PO SCH ×2 (08:59→20:59)
[2020-06-18] MEDS: LACTOBACILLUS CHEW TABLET PO SCH ×3 (08:59→20:59)
[2020-06-18] MEDS ORDERED: ALBUTEROL SULFATE 2.5 MG/3 ML INLINE PRN (12:30)
[2020-06-18] MEDS: RIVAROXABAN 10 MG TABLET PO SCH (16:08)
[2020-06-19] MEDS: LORazepam 2 MG/ML, 1ML IVPush PRN ×3 (00:11→20:22)
[2020-06-19] MEDS: CEFAZOLIN PMX 2GM/50ML 50 ML IVPB SCH ×3 (06:19→22:18)
[2020-06-19 07:44] LABS: BASOPHILS % (AUTO) 1 % (0-1); EOSINOPHILS % (AUTO) 2 % (1-7); LYMPHOCYTES % (AUTO) 13 % (22-44); MEAN CORPUSCULAR HEMOGLOBIN 31.3 pg (27.5-34.5); MEAN CORPUSCULAR HGB CONC 34.1 g/dL (33.2-36.2); MEAN PLATELET VOLUME 8.4 fL (7.4-10.4); MONOCYTES % (AUTO) 9 % (2-9); NEUTROPHILS % (AUTO) 76 % (42-75); PLATELET COUNT 217 x10^3/uL (130-400); RED BLOOD COUNT 3.78 x10^6/uL (4.38-5.82)
[2020-06-19 07:47] LABS: MD NO
[2020-06-19 07:56] LABS: ALBUMIN 2.9 g/dL (3.4-5.0); ANION GAP 4 mmol/L (5-15); CALCIUM 8.9 mg/dL (8.5-10.1); CHLORIDE 106 mmol/L (98-107)
[2020-06-19 08:00] LABS: ALANINE AMINOTRANSFERASE 28 U/L (12-78); ALKALINE PHOSPHATASE 93 U/L (45-117); BILIRUBIN,TOTAL 0.4 mg/dL (0.2-1.0); CREATININE 0.54 mg/dL (0.7-1.3)
[2020-06-19] MEDS: DOCUSATE 50 MG/5 ML, 10ML UDC PO SCH ×2 (09:02→22:19)
[2020-06-19] MEDS: PANTOPRAZOLE 40 MG IV IVPush SCH (09:02)
[2020-06-19] MEDS: LACTOBACILLUS CHEW TABLET PO SCH ×3 (09:03→22:19)
[2020-06-19] MEDS: METHADONE 10 MG TABLET PO SCH ×2 (09:03→22:19)
[2020-06-19] MEDS: RIVAROXABAN 10 MG TABLET PO SCH (16:59)
[2020-06-20] MEDS: LORazepam 2 MG/ML, 1ML IVPush PRN ×2 (02:36→20:23)
[2020-06-20] MEDS: CEFAZOLIN PMX 2GM/50ML 50 ML IVPB SCH ×3 (06:07→22:23)
[2020-06-20] MEDS: LACTOBACILLUS CHEW TABLET PO SCH ×3 (09:11→20:05)
[2020-06-20] MEDS: METHADONE 10 MG TABLET PO SCH ×2 (09:12→20:05)
[2020-06-20] MEDS: POLYETHYLENE GLYCOL 17 GM PACKET PO PRN (09:12)
[2020-06-20] MEDS: FLUOXETINE HCL 20 MG CAPSULE PO SCH (09:12)
[2020-06-20] MEDS: PANTOPRAZOLE 40 MG IV IVPush SCH (09:12)
[2020-06-20] MEDS: DOCUSATE 50 MG/5 ML, 10ML UDC PO SCH ×2 (09:12→19:07)
[2020-06-20] MEDS: RIVAROXABAN 10 MG TABLET PO SCH (17:42)
[2020-06-20] MEDS: LACTULOSE 20 GM/30 ML UDC PO PRN (18:02)
[2020-06-21] MEDS: TRAZODONE 50MG TABLET PO PRN (00:44)
[2020-06-21] MEDS: LORazepam 2 MG/ML, 1ML IVPush PRN ×2 (04:52→20:33)
[2020-06-21] MEDS: CEFAZOLIN PMX 2GM/50ML 50 ML IVPB SCH ×3 (06:16→22:12)
[2020-06-21] MEDS: LACTOBACILLUS CHEW TABLET PO SCH ×3 (09:26→20:33)
[2020-06-21] MEDS: DOCUSATE 50 MG/5 ML, 10ML UDC PO SCH ×2 (09:26→20:32)
[2020-06-21] MEDS: FLUOXETINE HCL 20 MG CAPSULE PO SCH (09:26)
[2020-06-21] MEDS: PANTOPRAZOLE 40 MG IV IVPush SCH (09:26)
[2020-06-21] MEDS: METHADONE 10 MG TABLET PO SCH ×2 (09:27→20:32)
[2020-06-21] MEDS: IBUPROFEN 200 MG TABLET PEG PRN (09:27)
[2020-06-21] MEDS: RIVAROXABAN 10 MG TABLET PO SCH (18:01)
[2020-06-21] MEDS ORDERED: ALBUTEROL/IPRATROPIUM 2.5MG/0.5MG, 3 ML ONE (18:55)
[2020-06-22] MEDS: TRAZODONE 50MG TABLET PO PRN ×2 (00:18→21:11)
[2020-06-22] MEDS: LORazepam 2 MG/ML, 1ML IVPush PRN ×2 (05:05→19:45)
[2020-06-22] MEDS: CEFAZOLIN PMX 2GM/50ML 50 ML IVPB SCH ×3 (05:12→21:27)
[2020-06-22] MEDS: PANTOPRAZOLE 40 MG IV IVPush SCH (08:06)
[2020-06-22] MEDS: FLUOXETINE HCL 20 MG CAPSULE PO SCH (08:06)
[2020-06-22] MEDS: DOCUSATE 50 MG/5 ML, 10ML UDC PO SCH ×2 (08:06→21:11)
[2020-06-22] MEDS: LACTOBACILLUS CHEW TABLET PO SCH ×3 (08:06→21:12)
[2020-06-22] MEDS: METHADONE 10 MG TABLET PO SCH ×2 (08:06→21:12)
--- NOTE | 2020-06-22 12:10 | NUR ---
Start beneprotein packets via PEG : 2 packets twice/day Dissolve completely 2 packets in 60 ml water. Flush the tube after with additional 30 ml water. Addendum: 06/22/20 at [address] Amended: Links added.
[2020-06-22] MEDS: RIVAROXABAN 10 MG TABLET PO SCH (17:09)
[2020-06-22] MEDS: ACETAMINOPHEN 325 MG TABLET PO PRN (17:35)
[2020-06-23 05:03] LABS: BASOPHILS % (AUTO) 1 % (0-1); EOSINOPHILS % (AUTO) 2 % (1-7); LYMPHOCYTES % (AUTO) 23 % (22-44); MEAN CORPUSCULAR HEMOGLOBIN 31.1 pg (27.5-34.5); MEAN CORPUSCULAR HGB CONC 34.6 g/dL (33.2-36.2); MEAN PLATELET VOLUME 9.2 fL (7.4-10.4); MONOCYTES % (AUTO) 13 % (2-9); NEUTROPHILS % (AUTO) 62 % (42-75); PLATELET COUNT 240 x10^3/uL (130-400); RED BLOOD COUNT 3.77 x10^6/uL (4.38-5.82); RED CELL DISTRIBUTION WIDTH 14.5 % (9.4-14.8)
[2020-06-23 05:04] LABS: MD NO
[2020-06-23 05:11] LABS: ANION GAP 5 mmol/L (5-15); CALCIUM 8.9 mg/dL (8.5-10.1); CHLORIDE 104 mmol/L (98-107); CREATININE 0.45 mg/dL (0.7-1.3)
[2020-06-23] MEDS: CEFAZOLIN PMX 2GM/50ML 50 ML IVPB SCH ×3 (06:02→21:43)
[2020-06-23] MEDS: LACTOBACILLUS CHEW TABLET PO SCH ×3 (08:07→21:08)
[2020-06-23] MEDS: FLUOXETINE HCL 20 MG CAPSULE PO SCH (08:07)
[2020-06-23] MEDS: DOCUSATE 50 MG/5 ML, 10ML UDC PO SCH ×2 (08:07→21:08)
[2020-06-23] MEDS: METHADONE 10 MG TABLET PO SCH ×2 (08:07→21:08)
[2020-06-23] MEDS: POLYETHYLENE GLYCOL 17 GM PACKET PO PRN (14:37)
[2020-06-23] MEDS: RIVAROXABAN 10 MG TABLET PO SCH (17:00)
[2020-06-23] MEDS: ACETAMINOPHEN 325 MG TABLET PO PRN (18:26)
[2020-06-23] MEDS: LORazepam 2 MG/ML, 1ML IVPush PRN (19:56)
[2020-06-24] MEDS: TRAZODONE 50MG TABLET PO PRN ×2 (00:22→23:33)
[2020-06-24] MEDS: LORazepam 2 MG/ML, 1ML IVPush PRN ×3 (04:47→20:39)
[2020-06-24] MEDS: CEFAZOLIN PMX 2GM/50ML 50 ML IVPB SCH ×3 (05:31→23:00)
[2020-06-24] MEDS: FLUOXETINE HCL 20 MG CAPSULE PO SCH (09:37)
[2020-06-24] MEDS: METHADONE 10 MG TABLET PO SCH ×2 (09:37→20:18)
[2020-06-24] MEDS: DOCUSATE 50 MG/5 ML, 10ML UDC PO SCH ×2 (09:37→20:18)
[2020-06-24] MEDS: LACTOBACILLUS CHEW TABLET PO SCH ×3 (09:37→20:18)
[2020-06-24] MEDS: RIVAROXABAN 10 MG TABLET PO SCH (16:52)
[2020-06-25] MEDS: LORazepam 2 MG/ML, 1ML IVPush PRN ×3 (04:28→20:11)
[2020-06-25] MEDS: CEFAZOLIN PMX 2GM/50ML 50 ML IVPB SCH ×3 (06:25→22:01)
[2020-06-25] MEDS: DOCUSATE 50 MG/5 ML, 10ML UDC PO SCH ×2 (09:50→20:09)
[2020-06-25] MEDS: LACTOBACILLUS CHEW TABLET PO SCH ×3 (09:50→20:09)
[2020-06-25] MEDS: METHADONE 10 MG TABLET PO SCH ×2 (09:51→20:10)
[2020-06-25] MEDS: FLUOXETINE HCL 20 MG CAPSULE PO SCH (09:51)
[2020-06-25] MEDS: POLYETHYLENE GLYCOL 17 GM PACKET PO PRN ×2 (13:16→13:22)
[2020-06-25] MEDS: RIVAROXABAN 10 MG TABLET PO SCH (17:14)
[2020-06-25] MEDS: MELATONIN 5 MG TABLET PO PRN (20:09)
[2020-06-26] MEDS: TRAZODONE 50MG TABLET PO PRN (01:25)
[2020-06-26 04:49] LABS: BASOPHILS % (AUTO) 1 % (0-1); EOSINOPHILS % (AUTO) 2 % (1-7); LYMPHOCYTES % (AUTO) 21 % (22-44); MEAN CORPUSCULAR HEMOGLOBIN 31.2 pg (27.5-34.5); MEAN CORPUSCULAR HGB CONC 34.6 g/dL (33.2-36.2); MEAN PLATELET VOLUME 9.2 fL (7.4-10.4); MONOCYTES % (AUTO) 11 % (2-9); NEUTROPHILS % (AUTO) 66 % (42-75); PLATELET COUNT 201 x10^3/uL (130-400); RED BLOOD COUNT 3.57 x10^6/uL (4.38-5.82); RED CELL DISTRIBUTION WIDTH 14.7 % (9.4-14.8)
[2020-06-26 04:50] LABS: MD NO
[2020-06-26 05:03] LABS: ALBUMIN 2.9 g/dL (3.4-5.0); CALCIUM 8.6 mg/dL (8.5-10.1); CHLORIDE 106 mmol/L (98-107)
[2020-06-26 05:09] LABS: ALANINE AMINOTRANSFERASE 18 U/L (12-78); ALKALINE PHOSPHATASE 97 U/L (45-117); ANION GAP 5 mmol/L (5-15); BILIRUBIN,TOTAL 0.5 mg/dL (0.2-1.0); CREATININE 0.46 mg/dL (0.7-1.3); TOTAL PROTEIN 6.8 g/dL (6.4-8.2)
[2020-06-26] MEDS: CEFAZOLIN PMX 2GM/50ML 50 ML IVPB SCH ×3 (06:06→22:21)
[2020-06-26] MEDS: POLYETHYLENE GLYCOL 17 GM PACKET PO PRN (08:18)
[2020-06-26] MEDS: METHADONE 10 MG TABLET PO SCH ×2 (08:19→21:07)
[2020-06-26] MEDS: LACTULOSE 20 GM/30 ML UDC PO PRN (08:19)
[2020-06-26] MEDS: DOCUSATE 50 MG/5 ML, 10ML UDC PO SCH ×2 (08:19→21:07)
[2020-06-26] MEDS: FLUOXETINE HCL 20 MG CAPSULE PO SCH (08:20)
[2020-06-26] MEDS: LACTOBACILLUS CHEW TABLET PO SCH (08:20)
[2020-06-26] MEDS ORDERED: MAGNESIUM HYDROXIDE 8%, 30ML UDC PO PRN (09:30)
[2020-06-26] MEDS ORDERED: BISACODYL 5 MG EC TABLET PO SCH (09:30)
[2020-06-26] MEDS: LORazepam 2 MG/ML, 1ML IVPush PRN ×2 (13:49→21:07)
[2020-06-26] MEDS: RIVAROXABAN 10 MG TABLET PO SCH (16:13)
[2020-06-26] MEDS: MELATONIN 5 MG TABLET PO PRN (21:06)
[2020-06-27] MEDS: TRAZODONE 50MG TABLET PO PRN ×2 (01:46→23:48)
[2020-06-27] MEDS: DOCUSATE 50 MG/5 ML, 10ML UDC PO SCH ×2 (09:33→20:09)
[2020-06-27] MEDS: LACTULOSE 20 GM/30 ML UDC PO SCH (09:33)
[2020-06-27] MEDS: FLUOXETINE HCL 20 MG CAPSULE PO SCH (09:34)
[2020-06-27] MEDS: METHADONE 10 MG TABLET PO SCH ×2 (09:34→20:09)
[2020-06-27] MEDS: POLYETHYLENE GLYCOL 17 GM PACKET PO SCH (09:34)
[2020-06-27] MEDS ORDERED: CLON1TAB11 PO (13:48)
[2020-06-27] MEDS ORDERED: PROP10TA16 PO (13:48)
[2020-06-27] MEDS: RIVAROXABAN 10 MG TABLET PO SCH (17:40)
[2020-06-27] MEDS: LORazepam 2 MG/ML, 1ML IVPush PRN (20:09)
[2020-06-28] MEDS: LORazepam 2 MG/ML, 1ML IVPush PRN ×3 (02:51→21:02)
[2020-06-28] MEDS: METHADONE 10 MG TABLET PO SCH ×2 (08:42→21:00)
[2020-06-28] MEDS: DOCUSATE 50 MG/5 ML, 10ML UDC PO SCH ×2 (08:42→21:00)
[2020-06-28] MEDS: FLUOXETINE HCL 20 MG CAPSULE PO SCH (08:43)
[2020-06-28] MEDS: ACETAMINOPHEN 325 MG TABLET PO PRN (08:43)
[2020-06-28] MEDS: POLYETHYLENE GLYCOL 17 GM PACKET PO SCH (08:43)
[2020-06-28] MEDS: LACTULOSE 20 GM/30 ML UDC PO SCH ×2 (08:43→08:45)
[2020-06-28] MEDS: RIVAROXABAN 10 MG TABLET PO SCH (17:12)
[2020-06-28] MEDS: GABAPENTIN 250 MG/5 ML ORAL SOL PO SCH (17:12)
[2020-06-29] MEDS: TRAZODONE 50MG TABLET PO PRN (00:23)
[2020-06-29] MEDS: LORazepam 2 MG/ML, 1ML IVPush PRN ×2 (03:31→20:25)
[2020-06-29] MEDS: FLUOXETINE HCL 20 MG CAPSULE PO SCH (09:52)
[2020-06-29] MEDS: DOCUSATE 50 MG/5 ML, 10ML UDC PO SCH ×2 (09:52→20:25)
[2020-06-29] MEDS: METHADONE 10 MG TABLET PO SCH ×2 (09:52→20:25)
[2020-06-29] MEDS: GABAPENTIN 250 MG/5 ML ORAL SOL PO SCH ×2 (09:52→20:25)
[2020-06-29] MEDS: POLYETHYLENE GLYCOL 17 GM PACKET PO SCH (09:52)
[2020-06-29] MEDS: LACTULOSE 20 GM/30 ML UDC PO SCH (15:36)
[2020-06-29] MEDS: RIVAROXABAN 10 MG TABLET PO SCH (17:59)
[2020-06-30] MEDS: TRAZODONE 50MG TABLET PO PRN ×2 (00:34→19:53)
[2020-06-30] MEDS: LORazepam 2 MG/ML, 1ML IVPush PRN (05:12)
[2020-06-30] MEDS ORDERED: LORazepam 2 MG/ML, 1ML IVPush PRN ×2 (08:30)
[2020-06-30] MEDS: LACTULOSE 20 GM/30 ML UDC PO SCH (10:04)
[2020-06-30] MEDS: DOCUSATE 50 MG/5 ML, 10ML UDC PO SCH ×2 (10:04→19:53)
[2020-06-30] MEDS: METHADONE 10 MG TABLET PO SCH ×2 (10:05→19:53)
[2020-06-30] MEDS: FLUOXETINE HCL 20 MG CAPSULE PO SCH (10:05)
[2020-06-30] MEDS: POLYETHYLENE GLYCOL 17 GM PACKET PO SCH (10:05)
[2020-06-30] MEDS: GABAPENTIN 250 MG/5 ML ORAL SOL PO SCH ×2 (10:08→19:54)
[2020-06-30] MEDS: ACETAMINOPHEN 325 MG TABLET PO PRN (14:33)
[2020-06-30] MEDS: RIVAROXABAN 10 MG TABLET PO SCH (17:03)
[2020-06-30] MEDS: MELATONIN 5 MG TABLET PO PRN (19:53)
[2020-06-30] MEDS ORDERED: LACTATED RINGERS 1,000 ML IVBOLUS ONE (22:00)
[2020-06-30] MEDS ORDERED: NOREPINEPHRINE 8 MG in SODIUM CHLORIDE 0.9% 242 ML IV PRN (23:30)
[2020-06-30] MEDS ORDERED: LORazepam 1MG TABLET ONE (23:52)
[2020-06-30] MEDS: LORazepam 0.5MG TABLET GT PRN (23:58)
[2020-07-01 00:41] LABS: ANION GAP 5 mmol/L (5-15); CALCIUM 8.7 mg/dL (8.5-10.1); CHLORIDE 105 mmol/L (98-107); CREATININE 0.41 mg/dL (0.7-1.3)
[2020-07-01 00:42] LABS: BASOPHILS % (AUTO) 1 % (0-1); EOSINOPHILS % (AUTO) 2 % (1-7); LYMPHOCYTES % (AUTO) 24 % (22-44); MEAN CORPUSCULAR HEMOGLOBIN 31.6 pg (27.5-34.5); MEAN CORPUSCULAR HGB CONC 34.7 g/dL (33.2-36.2); MEAN PLATELET VOLUME 9.5 fL (7.4-10.4); MONOCYTES % (AUTO) 10 % (2-9); NEUTROPHILS % (AUTO) 63 % (42-75); PLATELET COUNT 201 x10^3/uL (130-400); RED BLOOD COUNT 3.82 x10^6/uL (4.38-5.82); RED CELL DISTRIBUTION WIDTH 14.2 % (9.4-14.8)
[2020-07-01 00:48] LABS: MD NO
[2020-07-01] MEDS ORDERED: LACTULOSE 20 GM/30 ML UDC PO PRN (09:00)
[2020-07-01] MEDS: METHADONE 10 MG TABLET PO SCH ×2 (09:33→20:15)
[2020-07-01] MEDS: MIDODRINE 5 MG TABLET PO SCH ×3 (09:33→20:14)
[2020-07-01] MEDS: POLYETHYLENE GLYCOL 17 GM PACKET PO SCH (09:33)
[2020-07-01] MEDS: DOCUSATE 50 MG/5 ML, 10ML UDC PO SCH ×2 (09:33→20:14)
[2020-07-01] MEDS: FLUOXETINE HCL 20 MG CAPSULE PO SCH (09:33)
[2020-07-01] MEDS: LORazepam 0.5MG TABLET GT PRN ×2 (10:26→20:15)
[2020-07-01] MEDS: RIVAROXABAN 10 MG TABLET PO SCH (16:24)
[2020-07-01] MEDS: OXYcodone IR 5MG TABLET PO PRN (23:30)
[2020-07-02] MEDS: TRAZODONE 50MG TABLET PO PRN (00:19)
[2020-07-02] MEDS: MIDODRINE 5 MG TABLET PO SCH ×3 (05:51→21:22)
[2020-07-02] MEDS: FLUOXETINE HCL 20 MG CAPSULE PO SCH (09:32)
[2020-07-02] MEDS: POLYETHYLENE GLYCOL 17 GM PACKET PO SCH (09:32)
[2020-07-02] MEDS: DOCUSATE 50 MG/5 ML, 10ML UDC PO SCH ×2 (09:32→21:00)
[2020-07-02] MEDS: METHADONE 10 MG TABLET PO SCH ×2 (09:32→21:21)
[2020-07-02] MEDS: LORazepam 0.5MG TABLET GT PRN ×2 (09:45→21:21)
[2020-07-02] MEDS: RIVAROXABAN 10 MG TABLET PO SCH (16:51)
[2020-07-02 21:04] LABS: BASOPHILS % (AUTO) 1 % (0-1); EOSINOPHILS % (AUTO) 2 % (1-7); LYMPHOCYTES % (AUTO) 16 % (22-44); MEAN CORPUSCULAR HEMOGLOBIN 31.7 pg (27.5-34.5); MEAN CORPUSCULAR HGB CONC 35.1 g/dL (33.2-36.2); MEAN PLATELET VOLUME 8.6 fL (7.4-10.4); MONOCYTES % (AUTO) 9 % (2-9); NEUTROPHILS % (AUTO) 73 % (42-75); PLATELET COUNT 197 x10^3/uL (130-400); RED BLOOD COUNT 4.28 x10^6/uL (4.38-5.82); RED CELL DISTRIBUTION WIDTH 14.3 % (9.4-14.8)
[2020-07-02 21:06] LABS: MD NO
[2020-07-02] MEDS: PIPERACILLIN/TAZO 4.5 GM in DEXTROSE 5% 100 ML IVPB SCH (21:53)
[2020-07-03] MEDS: MELATONIN 5 MG TABLET PO PRN (00:46)
[2020-07-03] MEDS: TRAZODONE 50MG TABLET PO PRN ×2 (00:46→23:44)
[2020-07-03] MEDS: PIPERACILLIN/TAZO 4.5 GM in DEXTROSE 5% 100 ML IVPB SCH (03:07)
[2020-07-03] MEDS: MIDODRINE 5 MG TABLET PO SCH ×3 (05:49→22:39)
[2020-07-03] MEDS: LORazepam 0.5MG TABLET GT PRN ×2 (05:54→20:25)
[2020-07-03] MEDS: METHADONE 10 MG TABLET PO SCH ×2 (09:37→20:25)
[2020-07-03] MEDS: FLUOXETINE HCL 20 MG CAPSULE PO SCH (09:37)
[2020-07-03] MEDS: POLYETHYLENE GLYCOL 17 GM PACKET PO SCH (09:37)
[2020-07-03] MEDS: DOCUSATE 50 MG/5 ML, 10ML UDC PO SCH ×2 (09:37→20:25)
[2020-07-03] MEDS: RIVAROXABAN 10 MG TABLET PO SCH (16:31)
[2020-07-04] MEDS: MIDODRINE 5 MG TABLET PO SCH ×3 (05:18→23:01)
[2020-07-04] MEDS: POLYETHYLENE GLYCOL 17 GM PACKET PO SCH ×2 (08:47→08:48)
[2020-07-04] MEDS: FLUOXETINE HCL 20 MG CAPSULE PO SCH (08:47)
[2020-07-04] MEDS: METHADONE 10 MG TABLET PO SCH (08:47)
[2020-07-04] MEDS: LORazepam 0.5MG TABLET GT PRN ×2 (08:47→20:25)
[2020-07-04] MEDS: DOCUSATE 50 MG/5 ML, 10ML UDC PO SCH ×3 (08:47→20:25)
[2020-07-04] MEDS: RIVAROXABAN 10 MG TABLET PO SCH (16:46)
[2020-07-04] MEDS: METHADONE 5 MG TABLET PO SCH (20:25)
[2020-07-05] MEDS: TRAZODONE 50MG TABLET PO PRN (00:23)
[2020-07-05] MEDS: LORazepam 0.5MG TABLET GT PRN ×2 (04:58→20:51)
[2020-07-05] MEDS: MIDODRINE 5 MG TABLET PO SCH ×3 (05:39→20:52)
[2020-07-05] MEDS ORDERED: CEFAZOLIN 2,000 MG in SODIUM CHLORIDE 0.9% 50 ML IV SCH (07:00)
[2020-07-05 07:10] LABS: BASOPHILS % (AUTO) 1 % (0-1); EOSINOPHILS % (AUTO) 3 % (1-7); LYMPHOCYTES % (AUTO) 16 % (22-44); MEAN CORPUSCULAR HEMOGLOBIN 31.6 pg (27.5-34.5); MEAN CORPUSCULAR HGB CONC 34.3 g/dL (33.2-36.2); MONOCYTES % (AUTO) 10 % (2-9); NEUTROPHILS % (AUTO) 71 % (42-75); PLATELET COUNT 192 x10^3/uL (130-400); RED BLOOD COUNT 4.18 x10^6/uL (4.38-5.82); RED CELL DISTRIBUTION WIDTH 14.5 % (9.4-14.8)
[2020-07-05 07:19] LABS: ANION GAP 5 mmol/L (5-15); CHLORIDE 104 mmol/L (98-107); CREATININE 0.42 mg/dL (0.7-1.3)
[2020-07-05 07:23] LABS: MD NO
[2020-07-05] MEDS: CEFAZOLIN PMX 2GM/50ML 50 ML IVPB SCH ×3 (08:00→22:43)
[2020-07-05] MEDS: POLYETHYLENE GLYCOL 17 GM PACKET PO SCH (09:24)
[2020-07-05] MEDS: FLUOXETINE HCL 20 MG CAPSULE PO SCH (09:24)
[2020-07-05] MEDS: DOCUSATE 50 MG/5 ML, 10ML UDC PO SCH (09:24)
[2020-07-05] MEDS: METHADONE 5 MG TABLET PO SCH ×2 (09:24→20:51)
--- NOTE | 2020-07-05 09:29 | NUR ---
Tube feed:Promote at 100 ml/hr Addendum: 07/05/20 at [address] Amended: Links added.
[2020-07-05] MEDS: RIVAROXABAN 10 MG TABLET PO SCH (16:30)
[2020-07-05] MEDS: OXYcodone IR 5MG TABLET PO PRN (22:42)
[2020-07-06] MEDS: TRAZODONE 50MG TABLET PO PRN ×3 (00:05→23:40)
[2020-07-06] MEDS: CEFAZOLIN PMX 2GM/50ML 50 ML IVPB SCH ×3 (06:10→23:40)
[2020-07-06] MEDS: MIDODRINE 5 MG TABLET PO SCH ×3 (06:10→20:05)
[2020-07-06] MEDS: LORazepam 0.5MG TABLET GT PRN ×2 (06:15→20:11)
[2020-07-06] MEDS: POLYETHYLENE GLYCOL 17 GM PACKET PO SCH (09:00)
[2020-07-06] MEDS: DOCUSATE 50 MG/5 ML, 10ML UDC PO SCH ×2 (09:00→20:05)
[2020-07-06] MEDS: METHADONE 5 MG TABLET PO SCH ×2 (09:38→20:05)
[2020-07-06] MEDS: FLUOXETINE HCL 20 MG CAPSULE PO SCH (09:41)
[2020-07-06] MEDS: OXYcodone IR 5MG TABLET PO PRN (16:06)
[2020-07-06] MEDS: RIVAROXABAN 10 MG TABLET PO SCH (18:05)
[2020-07-07] MEDS: MIDODRINE 5 MG TABLET PO SCH ×3 (05:47→21:05)
[2020-07-07] MEDS: CEFAZOLIN PMX 2GM/50ML 50 ML IVPB SCH ×3 (05:47→22:58)
[2020-07-07] MEDS: LORazepam 0.5MG TABLET GT PRN ×2 (05:59→21:04)
[2020-07-07] MEDS: DOCUSATE 50 MG/5 ML, 10ML UDC PO SCH ×2 (09:00→20:04)
[2020-07-07] MEDS: POLYETHYLENE GLYCOL 17 GM PACKET PO SCH (09:00)
[2020-07-07] MEDS: METHADONE 5 MG TABLET PO SCH ×2 (09:17→21:05)
[2020-07-07] MEDS: FLUOXETINE HCL 20 MG CAPSULE PO SCH (09:17)
[2020-07-07] MEDS: RIVAROXABAN 10 MG TABLET PO SCH (16:10)
[2020-07-07] MEDS: LACTOBACILLUS CHEW TABLET PO SCH ×2 (16:10→21:04)
[2020-07-07] MEDS: MELATONIN 5 MG TABLET PO PRN (21:05)
[2020-07-08] MEDS: ACETAMINOPHEN 325 MG TABLET PO PRN (03:50)
[2020-07-08] MEDS: CEFAZOLIN PMX 2GM/50ML 50 ML IVPB SCH ×3 (06:07→23:25)
[2020-07-08] MEDS: MIDODRINE 5 MG TABLET PO SCH ×3 (06:08→21:09)
[2020-07-08] MEDS: POLYETHYLENE GLYCOL 17 GM PACKET PO SCH (09:00)
[2020-07-08] MEDS: METHADONE 5 MG TABLET PO SCH ×2 (09:28→21:09)
[2020-07-08] MEDS: DOCUSATE 50 MG/5 ML, 10ML UDC PO SCH ×2 (09:28→19:21)
[2020-07-08] MEDS: LACTOBACILLUS CHEW TABLET PO SCH ×3 (09:28→21:08)
[2020-07-08] MEDS: FLUOXETINE HCL 20 MG CAPSULE PO SCH (09:28)
[2020-07-08] MEDS ORDERED: MIDAZOLAM 1 MG/ML, 5ML ONE (12:44)
[2020-07-08] MEDS: RIVAROXABAN 10 MG TABLET PO SCH (17:45)
[2020-07-08] MEDS: LORazepam 0.5MG TABLET GT PRN (21:09)
[2020-07-08] MEDS: MELATONIN 5 MG TABLET PO PRN (21:09)
[2020-07-09] MEDS: TRAZODONE 50MG TABLET PO PRN (01:05)
[2020-07-09] MEDS: ACETAMINOPHEN 325 MG TABLET PO PRN (01:05)
[2020-07-09] MEDS: MIDODRINE 5 MG TABLET PO SCH ×3 (05:01→23:37)
[2020-07-09] MEDS: LORazepam 0.5MG TABLET GT PRN ×2 (05:01→20:19)
[2020-07-09] MEDS: CEFAZOLIN PMX 2GM/50ML 50 ML IVPB SCH ×3 (08:51→23:37)
[2020-07-09] MEDS: LACTOBACILLUS CHEW TABLET PO SCH ×3 (08:52→20:18)
[2020-07-09] MEDS: METHADONE 5 MG TABLET PO SCH ×2 (08:52→20:18)
[2020-07-09] MEDS: FLUOXETINE HCL 20 MG CAPSULE PO SCH (08:52)
[2020-07-09] MEDS: DOCUSATE 50 MG/5 ML, 10ML UDC PO SCH ×2 (08:52→20:18)
[2020-07-09] MEDS: POLYETHYLENE GLYCOL 17 GM PACKET PO SCH (08:53)
[2020-07-09] MEDS: RIVAROXABAN 10 MG TABLET PO SCH (14:48)
[2020-07-09] MEDS: MELATONIN 5 MG TABLET PO PRN (20:19)
[2020-07-10] MEDS: TRAZODONE 50MG TABLET PO PRN (03:15)
[2020-07-10] MEDS: LORazepam 0.5MG TABLET GT PRN ×2 (04:57→21:27)
[2020-07-10 06:37] LABS: BASOPHILS % (AUTO) 1 % (0-1); EOSINOPHILS % (AUTO) 2 % (1-7); LYMPHOCYTES % (AUTO) 17 % (22-44); MD NO; MEAN CORPUSCULAR HEMOGLOBIN 31.8 pg (27.5-34.5); MEAN CORPUSCULAR HGB CONC 34.9 g/dL (33.2-36.2); MEAN PLATELET VOLUME 9.2 fL (7.4-10.4); MONOCYTES % (AUTO) 9 % (2-9); NEUTROPHILS % (AUTO) 72 % (42-75); PLATELET COUNT 167 x10^3/uL (130-400); RED BLOOD COUNT 3.94 x10^6/uL (4.38-5.82); RED CELL DISTRIBUTION WIDTH 14.6 % (9.4-14.8)
[2020-07-10 06:53] LABS: CHLORIDE 105 mmol/L (98-107)
[2020-07-10 07:01] LABS: ALANINE AMINOTRANSFERASE 32 U/L (12-78); ALBUMIN 3.2 g/dL (3.4-5.0); ALKALINE PHOSPHATASE 102 U/L (45-117); ANION GAP 4 mmol/L (5-15); BILIRUBIN,TOTAL 0.6 mg/dL (0.2-1.0); CREATININE 0.36 mg/dL (0.7-1.3)
[2020-07-10] MEDS: CEFAZOLIN PMX 2GM/50ML 50 ML IVPB SCH ×3 (07:35→22:59)
[2020-07-10] MEDS: MIDODRINE 5 MG TABLET PO SCH ×3 (07:35→22:59)
[2020-07-10] MEDS: LACTOBACILLUS CHEW TABLET PO SCH ×3 (07:36→21:21)
[2020-07-10] MEDS: FLUOXETINE HCL 20 MG CAPSULE PO SCH (07:46)
[2020-07-10] MEDS: DOCUSATE 50 MG/5 ML, 10ML UDC PO SCH ×2 (07:47→21:05)
[2020-07-10] MEDS: POLYETHYLENE GLYCOL 17 GM PACKET PO SCH (07:47)
[2020-07-10] MEDS: METHADONE 5 MG TABLET PO SCH ×2 (08:51→21:21)
[2020-07-10] MEDS: RIVAROXABAN 10 MG TABLET PO SCH (16:22)
[2020-07-10] MEDS: MELATONIN 5 MG TABLET PO PRN (21:27)
[2020-07-11] MEDS: CEFAZOLIN PMX 2GM/50ML 50 ML IVPB SCH ×3 (06:13→22:45)
[2020-07-11] MEDS: LORazepam 0.5MG TABLET GT PRN ×2 (06:13→21:14)
[2020-07-11] MEDS: MIDODRINE 5 MG TABLET PO SCH ×3 (06:13→22:42)
[2020-07-11] MEDS: METHADONE 5 MG TABLET PO SCH ×2 (09:39→21:14)
[2020-07-11] MEDS: FLUOXETINE HCL 20 MG CAPSULE PO SCH (09:40)
[2020-07-11] MEDS: POLYETHYLENE GLYCOL 17 GM PACKET PO SCH (09:40)
[2020-07-11] MEDS: DOCUSATE 50 MG/5 ML, 10ML UDC PO SCH ×2 (09:41→21:13)
[2020-07-11] MEDS: LACTOBACILLUS CHEW TABLET PO SCH ×3 (09:43→21:14)
[2020-07-11] MEDS: RIVAROXABAN 10 MG TABLET PO SCH (17:20)
[2020-07-11] MEDS: MELATONIN 5 MG TABLET PO PRN (21:14)
[2020-07-12] MEDS: TRAZODONE 50MG TABLET PO PRN (01:44)
[2020-07-12] MEDS: CEFAZOLIN PMX 2GM/50ML 50 ML IVPB SCH ×3 (06:00→23:09)
[2020-07-12] MEDS: MIDODRINE 5 MG TABLET PO SCH ×3 (06:14→23:09)
[2020-07-12] MEDS: LORazepam 0.5MG TABLET GT PRN ×2 (06:14→20:36)
[2020-07-12] MEDS: FLUOXETINE HCL 20 MG CAPSULE PO SCH (08:35)
[2020-07-12] MEDS: DOCUSATE 50 MG/5 ML, 10ML UDC PO SCH ×2 (08:35→20:50)
[2020-07-12] MEDS: LACTOBACILLUS CHEW TABLET PO SCH ×3 (08:35→20:37)
[2020-07-12] MEDS: METHADONE 5 MG TABLET PO SCH ×2 (08:35→20:37)
[2020-07-12] MEDS: POLYETHYLENE GLYCOL 17 GM PACKET PO SCH (08:35)
[2020-07-12] MEDS: RIVAROXABAN 10 MG TABLET PO SCH (16:16)
[2020-07-12] MEDS: MELATONIN 5 MG TABLET PO PRN (20:37)
[2020-07-13] MEDS: TRAZODONE 50MG TABLET PO PRN (00:31)
[2020-07-13 04:55] LABS: BASOPHILS % (AUTO) 1 % (0-1); EOSINOPHILS % (AUTO) 2 % (1-7); LYMPHOCYTES % (AUTO) 20 % (22-44); MEAN CORPUSCULAR HEMOGLOBIN 32.1 pg (27.5-34.5); MEAN CORPUSCULAR HGB CONC 34.7 g/dL (33.2-36.2); MEAN PLATELET VOLUME 9.2 fL (7.4-10.4); MONOCYTES % (AUTO) 12 % (2-9); NEUTROPHILS % (AUTO) 65 % (42-75); PLATELET COUNT 193 x10^3/uL (130-400); RED BLOOD COUNT 4.29 x10^6/uL (4.38-5.82); RED CELL DISTRIBUTION WIDTH 14.3 % (9.4-14.8)
[2020-07-13 04:56] LABS: MD NO
[2020-07-13 05:02] LABS: CHLORIDE 105 mmol/L (98-107)
[2020-07-13 05:07] LABS: ANION GAP 7 mmol/L (5-15); CALCIUM 9.1 mg/dL (8.5-10.1); CREATININE 0.37 mg/dL (0.7-1.3)
[2020-07-13] MEDS: CEFAZOLIN PMX 2GM/50ML 50 ML IVPB SCH (06:47)
[2020-07-13] MEDS: MIDODRINE 5 MG TABLET PO SCH ×3 (06:50→23:24)
[2020-07-13] MEDS: POLYETHYLENE GLYCOL 17 GM PACKET PO SCH (09:00)
[2020-07-13] MEDS: DOCUSATE 50 MG/5 ML, 10ML UDC PO SCH ×2 (09:00→20:38)
[2020-07-13] MEDS: LACTOBACILLUS CHEW TABLET PO SCH ×3 (09:22→20:53)
[2020-07-13] MEDS: FLUOXETINE HCL 20 MG CAPSULE PO SCH (09:22)
[2020-07-13] MEDS: METHADONE 5 MG TABLET PO SCH ×2 (09:22→20:55)
[2020-07-13] MEDS: RIVAROXABAN 10 MG TABLET PO SCH (17:05)
[2020-07-13 20:00] VITALS: BP 123/82
[2020-07-13] MEDS: LORazepam 0.5MG TABLET GT PRN (20:53)
[2020-07-13] MEDS: MELATONIN 5 MG TABLET PO PRN (20:55)
[2020-07-13] MEDS: DOXYCYCLINE 50 MG/5 ML ORAL SUSP PO SCH (21:07)
[2020-07-14 02:29] VITALS: BP 128/76
[2020-07-14] MEDS: TRAZODONE 50MG TABLET PO PRN (04:32)
[2020-07-14] MEDS: MIDODRINE 5 MG TABLET PO SCH ×3 (06:24→23:24)
[2020-07-14 08:00] VITALS: BP 137/87
[2020-07-14] MEDS: DOXYCYCLINE 50 MG/5 ML ORAL SUSP PO SCH ×2 (08:07→23:23)
[2020-07-14] MEDS: METHADONE 5 MG TABLET PO SCH ×2 (08:07→23:22)
[2020-07-14] MEDS: DOCUSATE 50 MG/5 ML, 10ML UDC PO SCH ×2 (08:08→21:00)
[2020-07-14] MEDS: POLYETHYLENE GLYCOL 17 GM PACKET PO SCH (08:08)
[2020-07-14] MEDS: FLUOXETINE HCL 20 MG CAPSULE PO SCH (08:08)
[2020-07-14] MEDS: LACTOBACILLUS CHEW TABLET PO SCH ×3 (08:09→23:22)
[2020-07-14 12:20] VITALS: BP 119/86
[2020-07-14] MEDS: RIVAROXABAN 10 MG TABLET PO SCH (16:14)
[2020-07-14 20:01] VITALS: BP 126/85
[2020-07-14] MEDS: LORazepam 0.5MG TABLET GT PRN (23:23)
[2020-07-14] MEDS: MELATONIN 5 MG TABLET PO PRN (23:25)
[2020-07-15 01:46] VITALS: BP 120/78
[2020-07-15 07:16] VITALS: BP 122/78
[2020-07-15] MEDS: METHADONE 5 MG TABLET PO SCH (08:44)
[2020-07-15] MEDS: LACTOBACILLUS CHEW TABLET PO SCH (08:44)
[2020-07-15] MEDS: FLUOXETINE HCL 20 MG CAPSULE PO SCH (08:44)
[2020-07-15] MEDS: MIDODRINE 5 MG TABLET PO SCH (08:45)
[2020-07-15] MEDS: DOCUSATE 50 MG/5 ML, 10ML UDC PO SCH (08:45)
[2020-07-15] MEDS: POLYETHYLENE GLYCOL 17 GM PACKET PO SCH (08:45)
[2020-07-15] MEDS: DOXYCYCLINE 50 MG/5 ML ORAL SUSP PO SCH (08:56)
[2020-07-15 12:08] VITALS: BP 124/89
== END 2020-07-15 12:15 | disposition left against medical advice (07) | DRG 5 ==
LOC: ED 05-18 05:23 → EDIP 05-18 06:42 → CCU 05-18 07:12 → ICU 05-31 10:42 → CCU 06-05 15:13 → 4NE 07-13 17:25
PROVIDERS: ADMIT Internal Medicine; ATTEND Internal Medicine
PROC: 0BH17EZ Insertion of Endotracheal Airway into Trachea, Via Natural or Artificial Opening (ICD-10-PCS; principal; 2020-05-18)
PROC: 5A1955Z Respiratory Ventilation, Greater than 96 Consecutive Hours (ICD-10-PCS; 2020-05-18)
PROC: 0BH17EZ Insertion of Endotracheal Airway into Trachea, Via Natural or Artificial Opening (ICD-10-PCS; 2020-05-18)
PROC: 0YJ Anatomical Regions, Lower Extremities, Inspection (ICD-10-PCS; 2020-05-22)
PROC: 0B113F4 Bypass Trachea to Cutaneous with Tracheostomy Device, Percutaneous Approach (ICD-10-PCS; 2020-05-25)
PROC: 0B9J7ZX Drainage of Left Lower Lung Lobe, Via Natural or Artificial Opening, Diagnostic (ICD-10-PCS; 2020-05-25)
PROC: 0B9F7ZX Drainage of Right Lower Lung Lobe, Via Natural or Artificial Opening, Diagnostic (ICD-10-PCS; 2020-05-25)
PROC: 0DB68ZX Excision of Stomach, Via Natural or Artificial Opening Endoscopic, Diagnostic (ICD-10-PCS; 2020-05-26)
PROC: 0DH63UZ Insertion of Feeding Device into Stomach, Percutaneous Approach (ICD-10-PCS; 2020-05-26)
PROC: 0B9J7ZX Drainage of Left Lower Lung Lobe, Via Natural or Artificial Opening, Diagnostic (ICD-10-PCS; 2020-06-04)
PROC: 0B9G7ZX Drainage of Left Upper Lung Lobe, Via Natural or Artificial Opening, Diagnostic (ICD-10-PCS; 2020-06-04)
PROC: 0B9H7ZX Drainage of Lung Lingula, Via Natural or Artificial Opening, Diagnostic (ICD-10-PCS; 2020-06-04)
PROC: 5A09357 Assistance with Respiratory Ventilation, Less than 24 Consecutive Hours, Continuous Positive Airway Pressure (ICD-10-PCS; 2020-06-26)
PROC: 5A09357 Assistance with Respiratory Ventilation, Less than 24 Consecutive Hours, Continuous Positive Airway Pressure (ICD-10-PCS; 2020-07-01)
PROC: 02HV33Z Insertion of Infusion Device into Superior Vena Cava, Percutaneous Approach (ICD-10-PCS; 2020-07-03)
PROC: B548ZZA Ultrasonography of Superior Vena Cava, Guidance (ICD-10-PCS; 2020-07-03)
DX: J96.01 Acute respiratory failure with hypoxia (principal); J69.0 Pneumonitis due to inhalation of food and vomit; A48.52 Wound botulism; G82.50 Quadriplegia, unspecified; J15.211 Pneumonia due to Methicillin susceptible Staphylococcus aureus; E87.4 Mixed disorder of acid-base balance; F33.2 Major depressive disorder, recurrent severe without psychotic features; G92 Toxic encephalopathy; K83.1 Obstruction of bile duct; Z99.11 Dependence on respirator [ventilator] status; F11.20 Opioid dependence, uncomplicated; H70.002 Acute mastoiditis without complications, left ear; B19.20 Unspecified viral hepatitis C without hepatic coma; E63.9 Nutritional deficiency, unspecified; D63.8 Anemia in other chronic diseases classified elsewhere; F12.10 Cannabis abuse, uncomplicated; F15.20 Other stimulant dependence, uncomplicated; F17.210 Nicotine dependence, cigarettes, uncomplicated; F41.9 Anxiety disorder, unspecified; I10 Essential (primary) hypertension; K29.00 Acute gastritis without bleeding; K59.00 Constipation, unspecified; T43.621A Poisoning by amphetamines, accidental (unintentional), initial encounter; T40.601A Poisoning by unspecified narcotics, accidental (unintentional), initial encounter; K59.81 Ogilvie syndrome; Z53.29 Procedure and treatment not carried out because of patient's decision for other reasons; L02.31 Cutaneous abscess of buttock; L03.818 Cellulitis of other sites; R13.10 Dysphagia, unspecified; T38.0X5A Adverse effect of glucocorticoids and synthetic analogues, initial encounter; Y95 Nosocomial condition; Z63.8 Other specified problems related to primary support group; Z93.0 Tracheostomy status; Z88.8 Allergy status to other drugs, medicaments and biological substances; Y92.89 Other specified places as the place of occurrence of the external cause; Z79.899 Other long term (current) drug therapy
CPT/HCPCS: 31500; 31502; 31622; 31624; 36415; 36573; 36600; 62328; 70450; 70491; 70553; 71045; 71275; 72156; 74018; 74174; 74230; 76000; 76705; 80048; 80053; 80074; 80299; 80307; 80320; 80329; 81003; 82140; 82272; 82803; 82805; 82945; 82962; 83605; 83735; 84100; 84145; 84157; 84478; 84484; 85014; 85018; 85025; 85651; 86140; 87015; 87040; 87070; 87075; 87076; 87077; 87081; 87102; 87116; 87147; 87176; 87186; 87205; 87206; 87252; 87305; 87521; 87522; 87529; 87635; 87806; 88305; 89051; 93005; 94002; 94003; 94640; 94667; 94668; 96372; 96374; 96375; 99152; 99153; 99292; B4087; G0378; J0133; J0171; J0295; J0690; J1100; J1650; J2020; J2185; J2250; J2310; J2543; J2704; J2710; J3010; J3370; J7608; J7613; Q9967; A9575; C1751; C9113; G0475; G0480; J0330; J1630; J2060; J2270; J2370; J2765; J7040; J7050; J7120

== ENCOUNTER 2020-07-16 03:22 | Inpatient (IN) | payer MEDICAID ==
[~2020-07-16] VITALS: Ht 188 cm; Wt 88.1 kg
[~2020-07-16 03:22] MED LIST changes: +CLON1TAB11 PO; +PROP10TA16 PO
--- NOTE | 2020-07-16 04:15 | NUR ---
PT LEFT AMA FROM [facility] YESTERDAY AFTERNOON, PT WAS DX WITH BOTULISM, HAD A TRACH PULLED THAT AM, GI TUBE STILL IN PLACE. PT PLACED ON SPO2/BP/ECG MONITORING. REPORTS FULL BODY ACHING AND ANXIETY. PT WAS SUPPOSED TO BE PLACED IN A REHAB FACILITY BUT DECIDED TO LEAVE. PT TACHY UPON ARRIVAL TO ER. PT RESTING ON GURNEY, NAD, APPEARS COMFORTABLE. BED IN LOWEST, RAILS ENGAGED, CALL LIGHT ON LAP. WCTM.
[2020-07-16 05:20] LABS: ALANINE AMINOTRANSFERASE 41 U/L (12-78); ALBUMIN 4.2 g/dL (3.4-5.0); ANION GAP 7 mmol/L (5-15); CALCIUM 10.5 mg/dL (8.5-10.1); CHLORIDE 103 mmol/L (98-107); CREATININE 0.44 mg/dL (0.7-1.3)
[2020-07-16 05:21] LABS: MEAN PLATELET VOLUME 9.2 fL (7.4-10.4); PLATELET COUNT 263 x10^3/uL (130-400); RED BLOOD COUNT 5.32 x10^6/uL (4.38-5.82); RED CELL DISTRIBUTION WIDTH 14.1 % (9.4-14.8)
[2020-07-16 05:22] LABS: ALKALINE PHOSPHATASE 123 U/L (45-117); BILIRUBIN,TOTAL 1.7 mg/dL (0.2-1.0); TOTAL PROTEIN 8.9 g/dL (6.4-8.2)
[2020-07-16] MEDS ORDERED: SODIUM CHLORIDE 0.9% 1,000ML IVBOLUS ONE (05:30)
--- NOTE | 2020-07-16 05:30 | NUR ---
Patient is resting comfortably in bed. Bed in lowest, rails engaged, call light on lap. STILL TACHY ON MONITOR 120S. RN ATTEMPTED IV WITHOUT SUCCESS FOR IV FLUIDS. NATASHA.
[2020-07-16 06:01] LABS: BAND#(MANUAL) 0.12 x10^3/uL; BANDS%(MANUAL) 1 % (0-7); EOS#(MANUAL) 0.12 x10^3/uL (0.0-0.4); EOS% (MANUAL) 1 % (1-7); LYMPHS% (MANUAL) 11 % (22-44); MONOS#(MANUAL) 0.71 x10^3/uL (0.3-2.7); MONOS% (MANUAL) 6 % (2-9); SEG#(MANUAL) 9.56 x10^3/uL (1.8-6.8); SEGS% (MANUAL) 81 % (42-75)
[2020-07-16 06:02] LABS: <PLATELET ESTIMATE> ADEQUATE; <PLT MORPHOLOGY> NORMAL PLT MORPH; <RBC MORPHOLOGY> NORMAL
--- NOTE | 2020-07-16 06:42 | NUR ---
Patient is resting comfortably in bed. Bed in lowest, rails engaged, call light on lap. NO CHANGE IN CONDITION. WCTM.
--- NOTE | 2020-07-16 07:05 | NUR ---
US IV PLACED, ACCESS OBTAINED. FLUIDS RUNNING. UPON DISCUSSING POSSIBILITY OF GOING TO REHAB PT BECAME AGGITATED STATING "WELL I DONT WANT TO GO" RN ASKED WHAT THE PT GOAL WAS FOR CARE AND PT STATES "TO GET MY PILLS THIS MORNING". BEDSIDE REPORT TO ROBBIE VELOZ, PT CARE TRANSFERRED AT THIS TIME.
--- NOTE | 2020-07-16 07:06 | NUR ---
Bedside report from ROSELIA Albright. DOLORES RN at bedside to obtain IV access via US. Pt is awake and alert, tachy, on 2L O2, which he says is baseline since being in the hospital. Pt asking about POC and possible d/c. Pt states "the caser said I don't have to go to rehab." This RN inquired with pt if he believes he is able to be at home safely independently. Pt states "no." Pt educated about the process of working to d/c, but that the process is haulted because he left, and that it needs to be started again. Pt communicated understanding. Pt provided with urinal. Call light in reach. Bedrails up x2.
[2020-07-16 08:25] LABS: AMPHETAMINE SCREEN, URINE Negative (Negative); BARBITURATE SCREEN, URINE Negative (Negative); BENZODIAZEPINE SCREEN, URINE Negative (Negative); CANNABINOID SCREEN, URINE Positive (Negative); COCAINE SCREEN, URINE Negative (Negative); METHADONE SCREEN, URINE Positive (Negative); OPIATE SCREEN, URINE Negative (Negative)
[2020-07-16 08:45] LABS: MICROSCOPIC INDICATED
--- NOTE | 2020-07-16 08:48 | NUR ---
LARRY RN::REPORT GIVEN TO AMARIS VELOZ.
[2020-07-16 09:35] VITALS: BP 127/74
[2020-07-16] MEDS ORDERED: ENOXAPARIN 40 MG/0.4 ML SQ SCH (10:00)
[2020-07-16] MEDS ORDERED: ACETAMINOPHEN 325 MG TABLET PO PRN (10:00)
[2020-07-16] MEDS ORDERED: LORazepam 1MG TABLET PO ONE (10:30)
[2020-07-16] MEDS: METHADONE 5 MG TABLET PO SCH ×2 (10:44→21:32)
[2020-07-16] MEDS: FLUOXETINE HCL 20 MG CAPSULE PO SCH (10:44)
[2020-07-16 13:47] VITALS: BP 105/73
[2020-07-16] MEDS: RIVAROXABAN 10 MG TABLET PO SCH (16:12)
[2020-07-16 19:54] VITALS: BP 119/81
[2020-07-16] MEDS: LORazepam 0.5MG TABLET PO PRN (21:32)
[2020-07-16] MEDS: MELATONIN 5 MG TABLET PO PRN (22:49)
[2020-07-17 00:45] VITALS: BP 125/88
[2020-07-17 06:01] LABS: BASOPHILS % (AUTO) 1 % (0-1); EOSINOPHILS % (AUTO) 1 % (1-7); LYMPHOCYTES % (AUTO) 14 % (22-44); MEAN CORPUSCULAR HEMOGLOBIN 32.4 pg (27.5-34.5); MEAN CORPUSCULAR HGB CONC 35.2 g/dL (33.2-36.2); MEAN PLATELET VOLUME 9.1 fL (7.4-10.4); MONOCYTES % (AUTO) 10 % (2-9); NEUTROPHILS % (AUTO) 73 % (42-75); PLATELET COUNT 256 x10^3/uL (130-400); RED BLOOD COUNT 5.06 x10^6/uL (4.38-5.82); RED CELL DISTRIBUTION WIDTH 14.2 % (9.4-14.8)
[2020-07-17 06:33] VITALS: BP 118/80
[2020-07-17] MEDS: METHADONE 5 MG TABLET PO SCH ×2 (10:19→21:14)
[2020-07-17] MEDS: FLUOXETINE HCL 20 MG CAPSULE PO SCH (10:19)
[2020-07-17] MEDS ORDERED: MAGNESIUM HYDROXIDE 8%, 30ML UDC PO PRN (15:00)
[2020-07-17 15:16] VITALS: BP 122/83
[2020-07-17] MEDS ORDERED: SODIUM CHLORIDE 0.9%, 500ML IVBOLUS ONE (16:30)
[2020-07-17] MEDS: RIVAROXABAN 10 MG TABLET PO SCH (17:40)
[2020-07-17 18:03] VITALS: BP 122/79
[2020-07-17 18:24] VITALS: BP 136/87
[2020-07-17] MEDS: D5%-0.45NACL+KCL 20MEQ 1,000 ML IV SCH (18:39)
[2020-07-17] MEDS: LACTULOSE 20 GM/30 ML UDC PO SCH (21:00)
[2020-07-17] MEDS: MELATONIN 5 MG TABLET PO PRN (21:57)
[2020-07-17] MEDS: LORazepam 0.5MG TABLET PO PRN (21:57)
[2020-07-18] MEDS: D5%-0.45NACL+KCL 20MEQ 1,000 ML IV SCH ×3 (01:16→17:35)
[2020-07-18 01:19] VITALS: BP 122/86
[2020-07-18 06:45] VITALS: BP 126/80
[2020-07-18] MEDS: METHADONE 5 MG TABLET PO SCH ×2 (08:50→21:30)
[2020-07-18] MEDS: FLUOXETINE HCL 20 MG CAPSULE PO SCH (08:50)
[2020-07-18] MEDS: POLYETHYLENE GLYCOL 17 GM PACKET PO SCH (08:56)
[2020-07-18] MEDS: LACTULOSE 20 GM/30 ML UDC PO SCH ×2 (08:56→21:00)
[2020-07-18 09:12] LABS: BASOPHILS % (AUTO) 1 % (0-1); EOSINOPHILS % (AUTO) 2 % (1-7); LYMPHOCYTES % (AUTO) 16 % (22-44); MEAN CORPUSCULAR HEMOGLOBIN 32.1 pg (27.5-34.5); MEAN CORPUSCULAR HGB CONC 34.4 g/dL (33.2-36.2); MEAN PLATELET VOLUME 8.7 fL (7.4-10.4); MONOCYTES % (AUTO) 11 % (2-9); NEUTROPHILS % (AUTO) 71 % (42-75); PLATELET COUNT 241 x10^3/uL (130-400); RED BLOOD COUNT 4.98 x10^6/uL (4.38-5.82); RED CELL DISTRIBUTION WIDTH 14.1 % (9.4-14.8)
[2020-07-18 09:58] LABS: ALBUMIN 3.8 g/dL (3.4-5.0); ANION GAP 5 mmol/L (5-15); CALCIUM 9.2 mg/dL (8.5-10.1); CHLORIDE 107 mmol/L (98-107)
[2020-07-18 10:02] LABS: ALANINE AMINOTRANSFERASE 39 U/L (12-78); ALKALINE PHOSPHATASE 106 U/L (45-117); BILIRUBIN,TOTAL 1.2 mg/dL (0.2-1.0); CREATININE 0.39 mg/dL (0.7-1.3)
[2020-07-18 12:14] VITALS: BP 122/84
[2020-07-18] MEDS ORDERED: SENNA/DOCUSATE TABLET PO PRN (14:00)
[2020-07-18] MEDS: SENNA/DOCUSATE TABLET PO PRN (14:16)
[2020-07-18 15:37] VITALS: BP 123/85
[2020-07-18] MEDS: RIVAROXABAN 10 MG TABLET PO SCH (16:49)
[2020-07-18 20:11] VITALS: BP 115/73
[2020-07-18] MEDS: MELATONIN 5 MG TABLET PO PRN (21:30)
[2020-07-18] MEDS: TRAZODONE 100MG TABLET PO PRN (21:30)
[2020-07-18] MEDS: LORazepam 0.5MG TABLET PO PRN (21:31)
[2020-07-19] MEDS: D5%-0.45NACL+KCL 20MEQ 1,000 ML IV SCH ×2 (01:04→12:12)
[2020-07-19 01:31] VITALS: BP 120/77
[2020-07-19 06:30] VITALS: BP 118/72
[2020-07-19] MEDS: POLYETHYLENE GLYCOL 17 GM PACKET PO SCH (10:09)
[2020-07-19] MEDS: LACTULOSE 20 GM/30 ML UDC PO SCH ×2 (10:09→21:17)
[2020-07-19] MEDS: FLUOXETINE HCL 20 MG CAPSULE PO SCH (10:10)
[2020-07-19] MEDS: METHADONE 5 MG TABLET PO SCH ×2 (10:10→21:16)
[2020-07-19] MEDS ORDERED: PROPRANOLOL 20 MG TABLET PO ONE (10:44)
[2020-07-19 12:07] VITALS: BP 120/89
[2020-07-19] MEDS: RIVAROXABAN 10 MG TABLET PO SCH (18:05)
[2020-07-19] MEDS: PROPRANOLOL 20 MG TABLET PO SCH (18:06)
[2020-07-19 19:21] VITALS: BP 123/86
[2020-07-19] MEDS: TRAZODONE 100MG TABLET PO PRN (21:16)
[2020-07-19] MEDS: MELATONIN 5 MG TABLET PO PRN (21:16)
[2020-07-19] MEDS: LORazepam 0.5MG TABLET PO PRN (21:16)
[2020-07-20 01:19] VITALS: BP 114/74
[2020-07-20 07:12] VITALS: BP 125/84
[2020-07-20] MEDS: LACTULOSE 20 GM/30 ML UDC PO SCH ×2 (07:38→20:08)
[2020-07-20] MEDS: METHADONE 5 MG TABLET PO SCH ×2 (07:39→20:07)
[2020-07-20] MEDS: POLYETHYLENE GLYCOL 17 GM PACKET PO SCH (07:39)
[2020-07-20] MEDS: PROPRANOLOL 20 MG TABLET PO SCH ×2 (07:39→17:02)
[2020-07-20] MEDS: FLUOXETINE HCL 20 MG CAPSULE PO SCH (07:39)
[2020-07-20 12:45] VITALS: BP 116/77
[2020-07-20] MEDS: RIVAROXABAN 10 MG TABLET PO SCH (17:02)
[2020-07-20 19:47] VITALS: BP 109/77
[2020-07-20] MEDS: TRAZODONE 100MG TABLET PO PRN (20:07)
[2020-07-20] MEDS: LORazepam 0.5MG TABLET PO PRN (20:07)
[2020-07-20] MEDS: SENNA/DOCUSATE TABLET PO PRN (20:07)
[2020-07-20] MEDS: MELATONIN 5 MG TABLET PO PRN (20:07)
[2020-07-21 02:10] VITALS: BP 100/68
[2020-07-21] MEDS: LACTULOSE 20 GM/30 ML UDC PO SCH ×2 (07:47→21:16)
[2020-07-21] MEDS: METHADONE 5 MG TABLET PO SCH ×2 (07:47→21:17)
[2020-07-21] MEDS: POLYETHYLENE GLYCOL 17 GM PACKET PO SCH (07:47)
[2020-07-21] MEDS: FLUOXETINE HCL 20 MG CAPSULE PO SCH (07:47)
[2020-07-21] MEDS: PROPRANOLOL 20 MG TABLET PO SCH ×2 (07:47→17:28)
[2020-07-21 08:37] VITALS: BP 94/64
[2020-07-21 14:06] VITALS: BP 104/73
[2020-07-21] MEDS: RIVAROXABAN 10 MG TABLET PO SCH (17:06)
[2020-07-21 19:18] VITALS: BP 116/84
[2020-07-21] MEDS: TRAZODONE 100MG TABLET PO PRN (21:17)
[2020-07-21] MEDS: LORazepam 0.5MG TABLET PO PRN (21:17)
[2020-07-21] MEDS: MELATONIN 5 MG TABLET PO PRN (21:17)
[2020-07-22 03:55] VITALS: BP 122/74
[2020-07-22] MEDS: PROPRANOLOL 20 MG TABLET PO SCH ×2 (06:08→18:05)
[2020-07-22 06:12] VITALS: BP 95/66
[2020-07-22] MEDS: FLUOXETINE HCL 20 MG CAPSULE PO SCH (08:31)
[2020-07-22] MEDS: METHADONE 5 MG TABLET PO SCH ×2 (08:31→21:10)
[2020-07-22] MEDS: LACTULOSE 20 GM/30 ML UDC PO SCH ×2 (08:32→21:10)
[2020-07-22] MEDS: POLYETHYLENE GLYCOL 17 GM PACKET PO SCH (08:32)
[2020-07-22 11:21] VITALS: BP 100/67
[2020-07-22] MEDS: RIVAROXABAN 10 MG TABLET PO SCH (18:05)
[2020-07-22 18:22] VITALS: BP 107/72
[2020-07-22] MEDS: MELATONIN 5 MG TABLET PO PRN (21:23)
[2020-07-22] MEDS: TRAZODONE 100MG TABLET PO PRN (21:23)
[2020-07-23] MEDS: PROPRANOLOL 20 MG TABLET PO SCH ×2 (06:13→17:56)
[2020-07-23] MEDS: METHADONE 5 MG TABLET PO SCH ×2 (08:32→20:21)
[2020-07-23] MEDS: LACTULOSE 20 GM/30 ML UDC PO SCH ×2 (08:32→20:22)
[2020-07-23] MEDS: FLUOXETINE HCL 20 MG CAPSULE PO SCH (08:33)
[2020-07-23] MEDS: POLYETHYLENE GLYCOL 17 GM PACKET PO SCH (08:33)
[2020-07-23 13:30] VITALS: BP 108/70
[2020-07-23] MEDS ORDERED: ONDANSETRON 2MG/ML, 2ML IVPush PRN (14:30)
[2020-07-23] MEDS: RIVAROXABAN 10 MG TABLET PO SCH (16:09)
[2020-07-23 17:54] VITALS: BP 108/68
[2020-07-23 19:31] VITALS: BP 113/74
[2020-07-23] MEDS: MELATONIN 5 MG TABLET PO PRN (20:21)
[2020-07-23] MEDS: TRAZODONE 100MG TABLET PO PRN (20:21)
[2020-07-23] MEDS: LORazepam 0.5MG TABLET PO PRN (21:35)
[2020-07-24] MEDS: PROPRANOLOL 20 MG TABLET PO SCH ×2 (06:18→17:54)
[2020-07-24 06:20] VITALS: BP 110/82
[2020-07-24] MEDS: METHADONE 5 MG TABLET PO SCH ×2 (08:48→21:47)
[2020-07-24] MEDS: FLUOXETINE HCL 20 MG CAPSULE PO SCH (08:48)
[2020-07-24] MEDS: POLYETHYLENE GLYCOL 17 GM PACKET PO SCH (08:52)
[2020-07-24] MEDS: LACTULOSE 20 GM/30 ML UDC PO SCH ×2 (08:52→21:00)
[2020-07-24 11:12] VITALS: BP 94/63
--- NOTE | 2020-07-24 13:42 | NUR ---
Activity sheet posted - ambulation with FWW 3x/day with nursing staff Addendum: 07/24/20 at 1342 by Montana Miller PT Amended: Links added.
[2020-07-24] MEDS: RIVAROXABAN 10 MG TABLET PO SCH (17:54)
[2020-07-24 19:10] VITALS: BP 98/62
[2020-07-24] MEDS: MIRTAZAPINE 15 MG TABLET PO SCH (21:47)
[2020-07-24] MEDS: TRAZODONE 100MG TABLET PO PRN (21:47)
[2020-07-24] MEDS: LORazepam 0.5MG TABLET PO PRN (21:48)
[2020-07-25 06:22] VITALS: BP 102/68
[2020-07-25] MEDS: PROPRANOLOL 20 MG TABLET PO SCH ×2 (06:23→17:04)
[2020-07-25] MEDS: METHADONE 5 MG TABLET PO SCH ×2 (08:46→21:37)
[2020-07-25] MEDS: FLUOXETINE HCL 20 MG CAPSULE PO SCH (08:46)
[2020-07-25] MEDS: LACTULOSE 20 GM/30 ML UDC PO SCH ×2 (08:48→21:36)
[2020-07-25] MEDS: POLYETHYLENE GLYCOL 17 GM PACKET PO SCH (08:49)
[2020-07-25 17:02] VITALS: BP 109/73
[2020-07-25] MEDS: RIVAROXABAN 10 MG TABLET PO SCH (17:04)
[2020-07-25 19:01] VITALS: BP 95/66
[2020-07-25] MEDS: LORazepam 0.5MG TABLET PO PRN (21:36)
[2020-07-25] MEDS: MIRTAZAPINE 15 MG TABLET PO SCH (21:36)
[2020-07-25] MEDS: TRAZODONE 100MG TABLET PO PRN (21:37)
[2020-07-26 00:11] VITALS: BP 95/66
[2020-07-26] MEDS: PROPRANOLOL 20 MG TABLET PO SCH ×2 (05:43→16:41)
[2020-07-26 05:46] VITALS: BP 100/62
[2020-07-26] MEDS: METHADONE 5 MG TABLET PO SCH (10:18)
[2020-07-26] MEDS: FLUOXETINE HCL 20 MG CAPSULE PO SCH (10:18)
[2020-07-26] MEDS: LACTULOSE 20 GM/30 ML UDC PO SCH (10:19)
[2020-07-26] MEDS: POLYETHYLENE GLYCOL 17 GM PACKET PO SCH (10:19)
[2020-07-26] MEDS ORDERED: PROP20TA PO (14:59)
[2020-07-26] MEDS ORDERED: RIVA10TA2 PO (14:59)
[2020-07-26] MEDS ORDERED: FLUO20CA23 PO (14:59)
[2020-07-26 16:09] VITALS: BP 92/57
[2020-07-26] MEDS: RIVAROXABAN 10 MG TABLET PO SCH (16:41)
== END 2020-07-26 17:44 | DRG 918 ==
LOC: ED 05:26 → INTOOBSV 07:53 → OBSVTOIN 07:53 → EDIP 07:53 → SUATTDRO 08:28 → 3N 09:04 → 4WST 07-18 15:05
PROVIDERS: ADMIT Family Medicine; ATTEND Hospitalist
DX: T50.991A Poisoning by other drugs, medicaments and biological substances, accidental (unintentional), initial encounter (principal); L03.317 Cellulitis of buttock; B19.20 Unspecified viral hepatitis C without hepatic coma; D63.8 Anemia in other chronic diseases classified elsewhere; E86.0 Dehydration; F11.90 Opioid use, unspecified, uncomplicated; F15.90 Other stimulant use, unspecified, uncomplicated; F32.9 Major depressive disorder, single episode, unspecified; F41.9 Anxiety disorder, unspecified; G47.00 Insomnia, unspecified; H70.92 Unspecified mastoiditis, left ear; R13.10 Dysphagia, unspecified; Y92.89 Other specified places as the place of occurrence of the external cause; Z88.8 Allergy status to other drugs, medicaments and biological substances
CPT/HCPCS: 36415; 74018; 80053; 80307; 81001; 82962; 83735; 84100; 84145; 85025; 93005; G0378; J2405; J3480; J7030; J7040

== ENCOUNTER 2020-09-05 16:28 | Emergency (ER) | payer MEDICAID ==
[~2020-09-05] VITALS: Ht 185.4 cm; Wt 76.0 kg
[~2020-09-05 16:28] MED LIST changes: +FLUO20CA23 PO; +PROP20TA PO; +RIVA10TA2 PO
[2020-09-05 16:31] VITALS: BP 106/72
--- NOTE | 2020-09-05 17:05 | NUR ---
PT AMBULATORY TO ROOM FROM TRIAGE, PT CHANGED INTO GOWN, MONITORS IN PLACE. PT C/O PEG TUBE BEING INFECTED AND STATES HIS MD TOLD HIM TO COME TO THE ER TO GET IT OUT
--- NOTE | 2020-09-05 17:27 | NUR ---
PA AT BS
--- NOTE | 2020-09-05 18:20 | NUR ---
Patient given discharge instructions and they have confirmed that they understand the instructions. Patient ambulatory with steady gait.
== END 2020-09-05 18:27 | disposition home or self-care (01) ==
LOC: ED 18:00
DX: A05.1 Botulism food poisoning (principal); F17.210 Nicotine dependence, cigarettes, uncomplicated
CPT/HCPCS: 99281